=== PATIENT | female | born 1965 | race Caucasian/White ===

== ENCOUNTER 2022-12-22 08:05 | Outpatient (CLI) | payer OTHER, SELFPAY | END 2022-12-22 08:06 | disposition home or self-care (01) | LOC: NFLDREF 12-23 07:30 | PROVIDERS: PCP Internal Medicine; Referring Provider Internal Medicine; Visit Provider Internal Medicine | DX: Z00.00 Encounter for general adult medical examination without abnormal findings (principal); E03.9 Hypothyroidism, unspecified; Z13.1 Encounter for screening for diabetes mellitus | CPT/HCPCS: 82947; 84443 ==

== ENCOUNTER 2023-02-14 16:15 | Outpatient (RCR) | payer OTHER, SELFPAY ==
--- NOTE | 2022-12-26 13:11 | PT.OPE ---
PT [facility] Outpatient Eval PT [facility] Outpatient Eval Start: 12/25/22 08:53 Freq: Status: Active Protocol: Document 12/25/22 08:54 HN (Rec: 12/25/22 14:55 HN [id number]) E-signed By Malathi Syed DPT Physical Therapy Outpatient Evaluation Insurance Information Recert Due Date 02/23/23 Insurance Name [employer] Insurance Information/Comments Formerly [facility] Medical Diagnosis m54.16 lumbar radiculopathy Treating Diagnosis M54.16 lumbar radiculopathy Referring MD Kyle, [place] Subjective Subjective Patient is a 57 year old female with complaints of low back pain and right anterior LE pain, patient got on chair lift skiing, feels like her LE was yanked off, difficulty holding LE up. Patient reports some tingling mostly sharp achey that sharp with, shoots from knee. Has history of herniated disc. Patient is going for to [employer] for 1 week. Onset: Aggravating factors: standing up, lying flat, more pain at night, increased pain with stairs. Easing Factors: sitting, NSAIDs Prior level of function: unlimited with all ADLs and IADLs Current limitations: standing up, lying flat, more pain at night, increased pain with stairs. 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 Preferred Name Sanam Precautions Treatment Precautions/Contraindications no precautions/ contraindications identified at time of evaluation Weight Bearing Status Full Weight Bearing Therapy Limitations/Systems Review Not Limited Objective Other/Pertinent Objective Lumbar range of motion (% full range of motion) Flexion: 100 % Extension: 15 % increased pain and increased symptoms Left sidebendin% significant increase in symptoms Right sidebendin% no pain Left rotation: 50% significant increase in pain Right rotation: 75% mild pain Manual muscle testing: Hip flexion: 3+/5 L painful,?5 /5 R Hip abduction: 4/5 L ,?5/5 R Hip adduction: 5/5 L ,?5/5 R Hip extension: deferred Knee extension: 4+/5 L painful ,?5/5 R Knee flexion: 5/5 L ,?5/5 R Special tests: Slump: positive on left, negative on right Straight leg raise: positive on left, negative on right Repeated extension: no change in symptoms Repeated flexion: no change in symptoms Sensation: numbness and tingling along L2/L3 dermatome Joint mobility: PA mobilizations: hypomobile/ painful L2/L3, L3/L4 Palpation: increased pain and tenderness along lumbar paraspinals Functional Test Performed & Score Modified oswestry disability index: 20/50, 40% Assessment Assessment/Impression Patient is a 57 year old with complaints of low back and left LE symptoms. Patient demonstrates impaired in lumbar range of motion, Hip and knee strength, and increased numbness and tingling in left LE consistent with diagnosis of lumbar radiculopathy. The impairments impact the patients prolonged standing, lying supine, waking and performance of ADLs and IADLs. Patient will benefit from skilled physical therapy to address the impairments and activity limitations listed above. Prognostic factors include acuity of patient's symptoms and patient's low number of comorbidities. Primary Functional Limitations prolonged standing, lying supine, waking and performance of ADLs and IADLs. Plan of Care Rehabilitation Potential Good Rehabilitation Potential Comments Acuity of symptoms, patient's no/few comorbidities Physical Therapy Goals Short term goals (4 weeks, ) 1. Patient will tolerate standing >25 minutes with no increase in pain order to complete ADLs 2. Patient will report <7/10 pain in order to demonstrate decreased pain and disability related to symptoms 3. Patient will demonstrate independence with HEP in order to manage symptoms independently at home terminal make up operator goals (8 weeks, 02/23). 1. Patient will demonstrate 12 point improvement in Oswestry Disability Index in order to demonstrate decreased pain and disability related to 2. Patient will demonstrate full pain-free lumbar range of motion in order to complete ADLs and IADLs with no increase in pain. 3. Patient will report <3/10 pain in order to demonstrate decreased pain and disability related to symptoms. 5. Patient will demonstrate MMT of 4/5 in L hip and LE in order to demonstrate improved tolerance with lifting, carrying groceries. Coordination/Communication With Referral Source Treatment Plan/Direct Interventions Electrical Stimulation,Ice/ Cold/Vasopneumatic,Joint Mobilization,Manual Therapy, Neuromuscular Re-ed,Self-Care/ Home Management,Therapeutic Activities,Therapeutic Exercises,Traction (Mechanical ) Frequency/Duration 1-2x/week for 8 weeks Patient Will Be Discharged From Therapy Completion of LTG(s),Skills Plateau,Independent w/HEP Evaluation Billing Untimed Code Treatment Minutes 17 Complexity Low Certification Information Initial Certification Date 12/25/22 Ending Certification Date 02/23/23 Provider Signature Shows Agreement With POC & Medical Necessity Physician Signature & Date Requested Please Sign/Date Here Physician Comment/Change : Physician NPI Number #
== END 2023-03-16 15:23 | disposition home or self-care (01) ==
PROVIDERS: PCP Internal Medicine; Visit Provider Physician Assistant Surgical
DX: M54.16 Radiculopathy, lumbar region (principal); Z51.89 Encounter for other specified aftercare
CPT/HCPCS: 97110; 97140; 97161; 97535

== ENCOUNTER 2023-06-21 14:30 | Outpatient (RCR) | payer OTHER, SELFPAY | END 2023-08-01 14:49 | disposition home or self-care (01) | PROVIDERS: PCP Internal Medicine; Visit Provider Physician Assistant Surgical | DX: M54.12 Radiculopathy, cervical region (principal); Z51.89 Encounter for other specified aftercare | CPT/HCPCS: 97012; 97032; 97110; 97140; 97161; 97535 ==

== ENCOUNTER 2023-09-12 13:48 | Outpatient (CLI) | payer OTHER, SELFPAY ==
--- NOTE | 2023-09-12 14:00 | CRLHL7_ITS ---
For Patients: As a result of the Century Cures Act, medical imaging exams and procedure reports are released immediately into your electronic medical record. You may view this report before your referring provider. If you have questions, please contact your health care provider. INDICATION: Hearing loss. COMPARISON: None. TECHNIQUE: Noncontrast CT of the temporal bones. FINDINGS: Right: The right mastoid air cells and mastoid antrum are clear. Middle ear cavity is clear. Normal articulation of the ossicular chain. No opacification of sinus tympani. Normal tympanic membrane. The external auditory canal is patent. Tegmen tympani is intact. Normal mineralization of the otic capsule. Normal cochlea and vestibule. Normal internal auditory canal. Left: The left mastoid air cells and mastoid antrum are clear. Middle ear cavity is clear. Normal articulation of the ossicular chain. No opacification of sinus tympani. Normal tympanic membrane. The external auditory canal is patent. Tegmen tympani is intact. Normal mineralization of the otic capsule. Normal cochlea and vestibule. Normal internal auditory canal. Other: Visualized paranasal sinuses are clear. IMPRESSION: 1. Normal bilateral temporal bone structures. Please note that all CT scans at this facility use dose modulation, iterative reconstruction, and/or weight-based dosing when appropriate to reduce radiation dose to as low as reasonably achievable. Dictated by Patrick Mcmanus MD @ 09/13/2023 7:55:04 AM (Electronically Signed)
== END 2023-09-12 13:49 | disposition home or self-care (01) ==
LOC: CT 13:49
PROVIDERS: PCP Internal Medicine; Visit Provider Otolaryngology
DX: H91.93 Unspecified hearing loss, bilateral (principal)
CPT/HCPCS: 70480

== ENCOUNTER 2024-01-08 07:35 | Outpatient (CLI) | payer OTHER, SELFPAY ==
--- OUTSIDE RECORDS SUMMARY | 2024-01-11 07:23 | XMS_ITS | Encounter Summary ---
Author Name Unknown Organization [facility] Address [address] [place] [address] Care Team Providers Care Publications Designer Name Role Phone Unavailable Primary Care Provider Unavailabl e Reason for Visit * Reason Comments Phone Visit Encounter Details Date Type Department Care Team (Late st Contact Info) Description 12/19/2023 2:15 PM CDT Phone Visit Orthopedics at [facility] Orthopedic [place] [address] [place], [place] [id number] Dianelys Madera MD [address] [place] [id number] Ulnar nerve compression at multiple levels, unspecified laterality (Primary Dx); Hand numbness Social History Tobacco Use Types Packs/Day Years Used Date Smoking Tobacco: Never Assessed Sex and Gender Information Value Date Recorded Sex Assigned at Not on file Gender Identity Not on file Sexual Orientation Not on file documented as of this encounter Progress Notes * Dianelys Madera MD - 12/19/2023 2:15 PM CDT This visit was converted from a clinic visit to a telephone visit. The patient has been notified of following: This telephone visit will be conducted via a call between you and your physician/provider. We havefound that certain health care needs can be provided without the need for a physical exam. This service lets us provide the care you need with a short phone conversation. If a prescription is necessary we can send it directly to your pharmacy. If lab work is needed we can place an order for that and you can then stop by our lab to have the test done at a later time. If during the course of the call the physician/provider feels a telephone visit is not appropriate,you will not be charged for this service. Diagnosis: Cervical radiculopathy Last visit: 11/16/23 xrays needed at next visit: None Follow-up: P.r.n. Plan: I discussed the EMG results with the patient. They show evidence of cervical radiculopathy without compression of the ulnar nerve. I recommended that she visit with a spine surgeon. She had seen 1 last year and she may reach out to them again. I explained that I do not know if decompression at the cervical spine level at this time would result in improvement in her symptoms, but I think it would be worth exploring with a spine surgeon. The patient expressed understanding. Chief Complaint: follow up HPI: Sanam Darling is a 58 y.o. having a phone visit for a follow up visit. Treatment plan at their last visit on 11/16/23 included to obtain an EMG. Today, they state their symptoms are still the same. Still having numbness in the small and ring finger Physical Exam: Exam deferred due to phone visit. Results Reviewed: An EMG obtained on 12/06/23 shows: Changes consistent with a C8 radiculopathy on the left side. Total time spent on phone with patient: 5 minutes This visit was conducted via phone. The patient was in a safe place to conduct this visit. They were not operating a motor vehicle at the time of this visit. documented in this encounter Plan of Treatment Not on file documented as of this encounter Visit Diagnoses Diagnosis Ulnar nerve compression at multiple levels, unspecified laterality- Primary Hand numbness Disturbance of skin sensation documented in this encounter
--- OUTSIDE RECORDS SUMMARY | 2024-01-11 07:23 | XMS_ITS | Continuity of Care Document ---
Author Name Unknown Organization [facility] Address [address] [place] [address] Phone Care Team Providers Care Development Mgr Name Role Phone Deniz Akhtar MD Unavailable Unavailable Allergies, Adverse Reactions, Alerts Substance Reaction Status Criticality No Known Allergies Active No Inform ation Medications Medication Instructions Dosage Effective Dates (start - stop) Status Comments SYNTHROID (unknown strength) Not Available - Active Procedures Procedure Date Office[place]Outpatient [place] [facility] Directives Directive Yes / No Effective Date File Name No Information Encounters Encounter Description Practice Location Reason(s) For Visit Diagnoses Date Provider Providers Copied on Encounter Office/Outpati ent Visit,[facility] , [address], [place], [place], [id number], [place] tel:[phone] [facility] [place] Other spondylosis , cervical regionRadic ulopathy, cervical region Hermilo Guaman. [facility], [address] [place] [address], [address], [id number], [place]. tel:[phone] Referring Provider: Deniz Akhtar, [facility] [address], [address], [place], [address]. tel:[phone] Family History Family Member Type Diagnosis Age At Onset No Information Payers Payer name Insurance type Covered constitution party ID Authoramelie rodas(s) [facility] [id number] Social History Type Description Quantity Date Captured Comments Alcohol Use Details Unknown Caffeine Use Details Unknown Tobacco Use Status Current non-smoker Smoking Status Never smoker Non-Smoking Tobacco Use Details : No Details Available : No Details Available Sex Female Vital Signs Date / Time: Height Weight BMI Pulse Rate Blood Pressure Temperature Respiratory Rate Body Surface Area Head Circumference Head Circ. Percentile Wt./Melvin. Percentile BMI percentile Pulse Ox Inhaled Ox 11:35 AM 66.75 in 71.668 kg (158.00 lbs) 24.9 3 kg/m eter (2) Chief Complaint And Reason For Visit No Information Reason For Referral Reason For Referral No Information History Of Present Illness Encounter Date Complaint History Of Prese nt Illness No Information Functional Status Date Functional Assessmen t No Information Instructions Date Instruction Additional Infor mation No Information Assessments Type Assessment Date assessment Other spondylosis, cervical jaelyn on assessment Radiculopathy, cervical region S Patient Care Teams Name Effective Dates (start - stop) Status Members No Information
--- OUTSIDE RECORDS SUMMARY | 2024-01-11 07:23 | XMS_ITS | Encounter Summary ---
Author Name Unknown Organization [facility] Address [address] [place] [address] Care Team Providers Care Die Polisher Name Role Phone Unavailable Primary Care Provider Unavailabl e Reason for Visit * Procedure/Equipment (Routine) - New Request Specialty Diagnoses / Procedures Referred By Benoit t Referred To Contact Diagnoses Ulnar nerve compression at multiple levels, unspecified laterality Madera, Dianelys Landaverde MD [address] [place] [address] Referral ID Status Reason Start Date Expiration Date V isits Requested Visits Authorized [id number] New Request 11/16/2023 02/14/2025 1 1 Encounter Details Date Type Department Care Team (Latest Contact Info) Description 12/06/2023 12:30 PM CIRCULATING PROCESS INSPECTOR Office Visit [facility] EEG/EMG [address] [place] [address] Spencer Davis MD [address] [place] [address] Ulnar nerve compression at multiple levels, unspecified laterality (Primary Dx); Cervical radiculopathy Social History Tobacco Use Types Packs/Day Years Used Date Smoking Tobacco: Never Assessed Sex and Gender Information Value Date Recorded Sex Assigned at Not on file Gender Identity Not on file Sexual Orientation Not on file documented as of this encounter Patient Instructions * Patient Instructions* Rupinder Michelle - 12/06/2023 12:30 PM CIRCULATING PROCESS INSPECTOR The results of your EMG exam will be sent to the health care provider who ordered your EMG. Resultsare usually available in 2-3 days. Your referring provider will discuss the EMG results with you. If you have any site tenderness from the EMG needle exam, feel free to use an ice pack on the area as well as any over the counter pain reliever such as Tylenol or Ibuprofen. If you have any further questions or concerns, please contact us. Call for the [facility] in [place]. ULATING PROCESS INSPECTOR documented in this encounter Progress Notes * Spencer Davis MD - 12/06/2023 12:30 PM CST See procedure note. Spencer Davis MD 12/06/2023, 1:11 PM Department of Neurology [facility] ULATING PROCESS INSPECTOR documented in this encounter Procedure Notes * Spencer Davis MD - 12/06/2023 12:30 PM CSTAssociated Order(s): EMG REPORT [facility] EMG Lab [address] [place] [address] Visit Date: 12/06/2023 12:41 PM Name: Sanam Darling Patient MR#: [id number] Date of : 1965 Age: 58 Years Examiner: Spencer Davis M.D. Referring Provider: Dianelys Madera MD Height: Weight: Reason for Referral/History: Last May was having pain radiating down her left arm. Developed tingling in medial fingers of the left hand. The pain is gone but has ongoing numbness. A C spine MRI showed left C7-T1 foraminal stenosis. Exam: no weakness or atrophy in the left arm. Specific question: evaluate for left cervical radiculopathy vs ulnar neuropathy. Motor Nerve Conduction Nerve / Sites Rec.Site. Amplitude Ref. Latency Ref. Velocity Ref. mV mV ms ms m/s m/s L Median - APB Wrist APB 9.4 3.5 ?4.5 Elbow APB 8.6 ?4.0 7.8 55.8 ?48.0 L Ulnar - ADM Wrist ADM 10.9 2.8 ?3.6 B.Elbow ADM 10.2 5.8 66.4 ?51.0 A. Elbow ADM 10.0 ?6.0 7.3 65.9 ?51.0 F-Wave Studies Nerve M Lat F Lat Ref. Dist. ms ms ms mm L Ulnar - ADM 2.9 28.5 ?32.0 650 L Median - APB 3.7 28.0 ?32.0 650 Sensory Nerve Conduction Nerve / Sites Site Amp Ref. Peak Lat Ref. Velocity ??V ??V ms ms m/s L Median - Digit II (Antidromic) Wrist Dig II 22 ?15 3.2 ?3.6 51.6 Elbow Dig II 11 7.5 68.8 L Ulnar - Digit V (Antidromic) Wrist Dig V 21 ?10 2.5 ?3.1 55.0 B.Elbow Dig V 9 5.9 66.1 A.Elbow Dig V 7 7.5 65.0 69.5 L Superficial radial - Anatomical snuff box (Forearm) Forearm Dorsum of Hand 21 ?20 2.1 ?2.9 62.3 L Median, Ulnar - 1 Channel Palmar Median Palm Wrist 54 ?50 2.1 ?2.3 66.2 Ulnar Palm Wrist 28 ?15 1.8 ?2.3 64.0 EMG Summary Table . Spontaneous Activity Voluntary MUAPs Polyphasic Comment Muscle Exam Ins.Act. Fibs Fasc Rec. Decr. Recr. Incr. Ampl. High Ampl. Low Dur. Long Dur. Short Polyphasic Comment L. Biceps brachii Normal - - - - - - - - - - - L. Triceps brachii Normal - - - - - - - - - - - L. Pronator teres Normal - - - - - - - - - - - L. First dorsal interosseous - - - - + - + - + - + - L. Abductor pollicis brevis Normal - - - - - - - - - - - L. Extensor indicis proprius - - - - + - ++ - + - + - L. Cervical paraspinals (low) Normal - - - - - - - - - - - Summary The motor conduction test was normal in all 2 of the tested nerves: L Median - APB, L Ulnar - ADM. The sensory conduction test was normal in all 4 of the tested nerves: L Median - Digit II (Antidromic), L Ulnar - Digit V (Antidromic), L Superficial radial - Anatomical snuff box (Forearm), L Median, Ulnar - 1 Channel Palmar. The F wave study was normal in all 2 of the tested nerves: L Ulnar - ADM, L Median - APB. The needle EMG examination was performed in 7 muscles. It was normal in 5 muscle(s): L. Biceps brachii, L. Triceps brachii, L. Pronator teres, L. Abductor pollicis brevis, L. Cervical paraspinals (low). The study was abnormal in 2 muscle(s), with the following distribution: ?? The MUP waveform abnormality was found in L. First dorsal interosseous, L. Extensor indicis proprius. ?? polyphasic was found in L. First dorsal interosseous, L. Extensor indicis proprius. Conclusion: Abnormal study. There is mild chronic reinnervation in a C8 myotomal pattern consistent with a previous left C8 radiculopathy without evidence of ongoing nerve root irritation. Spencer Davis M.D. Methods: Limb temperature were monitored continuously during the NCS and repetitive stimulation. Hand temperatures were maintained between 32??C and 36??C. and foot, temperatures were maintained between 30??C and 36??C. NCS: 5 mm tin disc, Ulnar Nerve.: Elbow. Flexed, Concentric Needle Electrode. Instrument used: [employer] EDX File: [id number] ULATING PROCESS INSPECTOR documented in this encounter Plan of Treatment Not on file documented as of this encounter Procedures Procedure Name Priority Date/Time Associated Diagnosis Comments EMG REPORT Routine 12/06/2023 12:30 PM CIRCULATING PROCESS INSPECTOR Ulnar nerve compression at multiple levels, unspecified laterality documented in this encounter Results * EMG REPORT [[id number]] (12/06/2023 12:30 PM CIRCULATING PROCESS INSPECTOR) Narrative EXTERNAL RESULTS - 12/06/2023 12:30 PM CIRCULATING PROCESS INSPECTOR Spencer Davis MD ? 12/06/2023 ??1:51 PM [facility] EMG Lab [address] [place] [id number] ? Visit Date: 12/06/2023 12:41 PM ? Name: Sanam Darling Patient MR#: [id number] Date of : 1965 Age: 58 Years Examiner: Spencer Davis M.D. ??Referring Provider: Dianelys Madera MD Height: ?? Weight: ? Reason for Referral/History: Last May was having pain radiating down her left arm. Developed tingling in medial fingers of the left hand. The pain is gone but has ongoing numbness. A C spine MRI showed left C7-T1 foraminal stenosis. Exam: no weakness or atrophy in the left arm. Specific question: evaluate for left cervical radiculopathy vs ulnar neuropathy. ? Motor Nerve Conduction ?? Nerve / Sites Rec.Site. Amplitude Ref. Latency Ref. Velocity Ref. ?mV mV ms ms m/s m/s L Median - APB ?? Wrist APB 9.4 ?? 3.5 ?4.5 ? Elbow APB 8.6 ?4.0 7.8 ?? 55.8 ?48.0 L Ulnar - ADM ?? Wrist ADM 10.9 ?? 2.8 ?3.6 ? B.Elbow ADM 10.2 ?? 5.8 ?? 66.4 ?51.0 ?? A. Elbow ADM 10.0 ?6.0 7.3 ?? 65.9 ?51.0 ?? F-Wave Studies ?? Nerve M Lat F Lat Ref. Dist. ??ms ms ms mm L Ulnar - ADM 2.9 28.5 ?32.0 650 L Median - APB 3.7 28.0 ?32.0 650 ?? Sensory Nerve Conduction ?? Nerve / Sites Site Amp Ref. Peak Lat Ref. Velocity ?V ??V ms ms m/s L Median - Digit II (Antidromic) ?? Wrist Dig II 22 ?15 3.2 ?3.6 51.6 ?? Elbow Dig II 11 ?? 7.5 ?? 68.8 L Ulnar - Digit V (Antidromic) ?? Wrist Dig V 21 ?10 2.5 ?3.1 55.0 ?? B.Elbow Dig V 9 ?? 5.9 ?? 66.1 ?? A.Elbow Dig V 7 ?? 7.5 ?? 65.0 ?69.5 L Superficial radial - Anatomical snuff box (Forearm) ?? Forearm Dorsum of Hand 21 ?20 2.1 ?2.9 62.3 L Median, Ulnar - 1 Channel Palmar ?? Median Palm Wrist 54 ?50 2.1 ?2.3 66.2 ?? Ulnar Palm Wrist 28 ?15 1.8 ?2.3 64.0 ? EMG Summary Table ?. Spontaneous Activity Voluntary MUAPs Polyphasic Comment Muscle Exam Ins.Act. Fibs Fasc Rec. Decr. Recr. Incr. Ampl. High Ampl. Low Dur. Long Dur. Short Polyphasic Comment L. Biceps brachii Normal - - - - - - - - - - - L. Triceps brachii Normal - - - - - - - - - - - L. Pronator teres Normal - - - - - - - - - - - L. First dorsal interosseous - - - - + - + - + - + - L. Abductor pollicis brevis Normal - - - - - - - - - - - L. Extensor indicis proprius - - - - + - ++ - + - + - L. Cervical paraspinals (low) Normal - - - - - - - - - - - ?? Summary The motor conduction test was normal in all 2 of the tested nerves: L Median - APB, L Ulnar - ADM. The sensory conduction test was normal in all 4 of the tested nerves: L Median - Digit II (Antidromic), L Ulnar - Digit V (Antidromic), L Superficial radial - Anatomical snuff box (Forearm), L Median, Ulnar - 1 Channel Palmar. The F wave study was normal in all 2 of the tested nerves: L Ulnar - ADM, L Median - APB. The needle EMG examination was performed in 7 muscles. It was normal in 5 muscle(s): L. Biceps brachii, L. Triceps brachii, L. Pronator teres, L. Abductor pollicis brevis, L. Cervical paraspinals (low). The study was abnormal in 2 muscle(s), with the following distribution: ?The MUP waveform abnormality was found in L. First dorsal interosseous, L. Extensor indicis proprius. ?polyphasic was found in L. First dorsal interosseous, L. Extensor indicis proprius. ?? Conclusion: Abnormal study. There is mild chronic reinnervation in a C8 myotomal pattern consistent with a previous left C8 radiculopathy without evidence of ongoing nerve root irritation. Spencer Davis M.D. Methods: Limb temperature were monitored continuously during the NCS and repetitive stimulation. Hand temperatures were maintained between 32??C and 36??C. and foot, temperatures were maintained between 30??C and 36??C. NCS: 5 mm tin disc, Ulnar Nerve.: Elbow. Flexed, Concentric Needle Electrode. Instrument used: [employer] EDX File: [id number] Dianelys Madera MD [facility] [employer] EXTERNAL RESULTS documented in this encounter Visit Diagnoses Diagnosis Ulnar nerve compression at multiple levels, unspecified laterality- Primary Cervical radiculopathy Brachial neuritis or radiculitis nos documented in this encounter
--- OUTSIDE RECORDS SUMMARY | 2024-01-11 07:23 | XMS_ITS | Encounter Summary ---
Author Name Unknown Organization [facility] Address [address], [place] [address] Care Team Providers Care Register Clerk Name Role Phone Unavailable Primary Care Provider Unavailabl e Reason for Referral * Procedure/Equipment (Routine) - New Request Specialty Diagnoses / Procedures Referred By Benoit t Referred To Contact Diagnoses Ulnar nerve compression at multiple levels, unspecified laterality Dianelys Madera MD [address] [place] [address] Referral ID Status Reason Start Date Expiration Date V isits Requested Visits Authorized [id number] New Request 11/16/2023 02/14/2025 1 1 Scheduling Instructions Scheduling Instructions (EMG): If an appointment with [facility] was advised please call [phone] at the [facility] for assistance. We suggest you call your health insurance company about your coverage and benefits for this appointment. Do not apply any lotions or oils to your skin prior to this visit. EMG appointments can take up to two hours. Question Answer Appointment Urgency? Non-Urgent Body part(s) to be tested: Left Arm Symptoms: Numbness/Paresthesias, Weakness Reason for visit? eval cervical radiculopathy vs cubital tunnel syndrome E UP WORKER Reason for Visit * Reason Comments CONSULT Left hand numbness Encounter Details Date Type Department Care Team (Late st Contact Info) Description 11/16/2023 4:20 PM PASTE UP WORKER Office Visit Specialty [facility] [address] [place] [address] Dianelys Madera MD [address] [place] [address] Ulnar nerve compression at multiple levels, unspecified laterality (Primary Dx) Social History Tobacco Use Types Packs/Day Years Used Date Smoking Tobacco: Never Assessed Sex and Gender Information Value Date Recorded Sex Assigned at Not on file Gender Identity Not on file Sexual Orientation Not on file documented as of this encounter Patient Instructions * Patient Instructions* Dianelys Madera MD - 11/16/2023 4:20 PM PASTE UP WORKER Reason for today's visit: left hand numbness Your diagnosis: possible residual effects of pinched nerve at your neck (cervical radiculopathy) vsulnar nerve compression at the elbow (cubital tunnel syndrome) Tests that you will need: EMG/NCS- nerve test Treatment plan: You can try splinting the elbow straight while sleeping with an elbow pad worn backwards to preventelbow flexion. Other treatment options will depend on nerve test results. Follow up appointments: I will call you with the EMG results. If you have any questions about your visit, your symptoms, your medication, your test results or itis not clear what your diagnosis or treatment plan is please contact me (via on-line services/e-mail) or call my office at [phone]. Your follow up appointment will be scheduled with one of the Orthopaedic Hand Surgery Department team members. This may be one of our physician assistants. They are always in direct communication with your physician. Thank you for continuing to trust us with your care. We are your partner. E UP WORKER documented in this encounter Progress Notes * Dianelys Madera MD - 11/16/2023 4:20 PM CST Diagnosis: Hand numbness Hand Dominance: Left Xrays needed next visit: None Follow up: By phone after EMG Plan: The disc herniation seen on her MRI could definitely cause a cervical radiculopathy in this pattern, but she also has some signs and symptoms of cubital tunnel syndrome. I recommended an EMG tofurther evaluate. I will contact her with those results. In the meantime if she wants to try doing some nighttime splinting to keep the elbow straight that may help. Chief Complaint: left hand weakness and numbness HPI: Sanam Darling is a 58 y.o. left hand dominant female seen in clinic for evaluation of left hand weakness and numbness. Last summer she was tubing and a few days after that had the onset of significant neck pain and arm pain on the left side. She had an MRI which showed a disc herniation and she did physical therapy. Her neck pain and arm pain has improved but she has persistent numbness into the small and ring finger. This is present all the time. Occasionally it is associated with pain and she does think she had some elbow pain in the past but this has gotten better. She feels like herleft hand is clumsy when she tries to do keyboarding. She has trouble putting on jewelry PAST MEDICAL HISTORY: Hypothyroidism, hand osteoarthritis. She has had left ring finger PIP surgeryas well as right thumb surgery for arthritis in the past. 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 Smoking status: Nonsmoker, drinks about 2 alcoholic beverages a week Hobbies: Gardening, working out with weights Physical Exam: Patient is awake and alert. Breathing is nonlabored. Exam of the left upper extremity reveals Skin is intact. She does have bony enlargement of multiple joints consistent with osteoarthritis. There is stiffness of multiple IP joints as well. She reports subjectively diminished sensation over the dorsal ulnar hand much more so than over thedorsal radial hand. Symmetric sensation on the palmar surface of the index and long finger, but diminished on the ring and small finger. No intrinsic atrophy. Absent Froment's. Absent Wartenberg's. 5/5 strength with testing of FPL FDP to index finger abduction. Symmetric pinch strength as well. Positive elbow hyperflexion test with more sensitivity over the ulnar nerve at the medial epicondyle and some mild hypermobility there. No snapping over the medial epicondyle. Negative scratch collapse test there. 2 pt Discrimination Thumb Index Middle Ring Small Left 6 mm 5 mm 5 mm 5 mm 6 mm Results Reviewed: C-spine MRI dated May 05, 2023 shows a C7-T1 left-sided paracentral disc herniation with foraminal stenosis. An upper extremity EMG has not previously been obtained. E UP WORKER documented in this encounter Plan of Treatment Scheduled Referrals Name Type Priority Associated Diagnoses Orde r Schedule Emg-Electromyography Adult Referral Routine Ulnar nerve compression at multiple levels, unspecified laterality Ordered: 11/16/2023 documented as of this encounter Visit Diagnoses Diagnosis Ulnar nerve compression at multiple levels, unspecified laterality- Primary documented in this encounter
--- OUTSIDE RECORDS SUMMARY | 2024-01-11 07:23 | XMS_ITS | Clinical Summary ---
Author Name Unknown Organization [facility] Address [address] [address] Care Team Providers Care Cargo Services Coordinator Name Role Phone Unavailable Primary Care Provider Unavailabl e Source Comments You are receiving this document as you are listed as the primary care provider,follow-up provider, or the patient has been referred to you for consultation.This is in compliance with the Medicare and[facility] EHR Incentive Program,which states Providers who transition their patient to another setting of careor provider of care or refers their patient to another provider of care shouldprovide summary care record for each transition of care or referral. [facility] Allergies No known active allergies Medications Medication Sig Dispensed Refills Start Date End Date Status estradiol (CLIMARA) 0.05 MG/24HR weekly patch Apply 1 Patch to skin once every week. 10/28/2023 Active levothyroxine (SYNTHROID) 150 MCG tablet Take 1 Tablet (150 mcg) by mouth daily. 11/03/2023 Active Encounters Date Type Department Care Team Description 12/19/2023 2:15 PM CDT Phone Visit Orthopedics at [facility] Orthopedic [address] [address] Dianelys Madera MD Ulnar nerve compression at multiple levels, unspecified laterality (Primary Dx); Hand numbness 12/18/2023 Telephone Orthopedics at [address] [address] Dianelys Madera MD EMG RESULTS 12/06/2023 12:30 PM BLEACH MACHINE OPERATOR Office Visit [facility] EEG/EMG [address] [place] [address] Spencer Davis MD Ulnar nerve compression at multiple levels, unspecified laterality (Primary Dx); Cervical radiculopathy 11/16/2023 4:20 PM BLEACH MACHINE OPERATOR Office Visit Specialty Center [address] [facility] [address] [facility] [place] [address] Dianelys Madera MD Ulnar nerve compression at multiple levels, unspecified laterality (Primary Dx) from Last 3 Months Social History Tobacco Use Types Packs/Day Years Used Date Smoking Tobacco: Never Assessed Sex and Gender Information Value Date Recorded Sex Assigned at Not on file Gender Identity Not on file Sexual Orientation Not on file Plan of Treatment Health Maintenance Due Date Last Done Comments Cervical Cancer Screening Due 1965 Colon Cancer Screening Plan Due 1965 Hep C Screening (Preventive Services) 1965 Mammogram 1965 HIV Screening (Preventive Services) 1981 Adult Preventive Visit 1983 HepB (1) 1984 Cholesterol 2010 DTaP/Tdap/Td (1 - Tdap) 06/13/2017 06/12/2017 COVID-19 Vaccine ( season) 2023 01/27/2021, 12/30/2020 Zoster/Shingles Completed 11/03/2020, 03/01/2020 Influenza Completed 09/16/2023, 07/02, 07/05/2021, Additional history exists HepA Aged Out No longer eligi ble based on patient's age to complete this topic Hib Aged Out No longer eligi ble based on patient's age to complete this topic IPV (Polio) Aged Out No longer eligi ble based on patient's age to complete this topic MCV4 Aged Out No longer eligi ble based on patient's age to complete this topic Pneumococcal Aged Out No longer eligi ble based on patient's age to complete this topic Procedures Procedure Name Priority Date/Time Associated Diagnosis Comments EMG REPORT Routine 12/06/2023 12:30 PM BLEACH MACHINE OPERATOR Ulnar nerve compression at multiple levels, unspecified laterality from Last 3 Months Results * EMG REPORT [[id number]] (12/06/2023 12:30 PM BLEACH MACHINE OPERATOR) Narrative EXTERNAL RESULTS - 12/06/2023 12:30 PM BLEACH MACHINE OPERATOR Spencer Davis MD ? 12/06/2023 ??1:51 PM [facility] EMG Lab [address] [place] [address] ? Visit Date: 12/06/2023 12:41 PM ? Name: Sanam Darling Patient MR#: [id number] Date of : 1965 Age: 58 Years [...] Elbow. Flexed, Concentric Needle Electrode. Instrument used: Xtalic EDX File: [id number] Dianelys Madera MD [facility] EXTERNAL RESULTS from Last 3 Months Sanam Darling Personal/Family Self 1965 ([place]) [address] [place] [address]
--- OUTSIDE RECORDS SUMMARY | 2024-01-11 07:23 | XMS_ITS | Encounter Summary ---
Author Name Unknown Organization [facility] Address [address], [place] [address] Care Team Providers Care Naval Architect Name Role Phone Unavailable Primary Care Provider Unavailabl e Reason for Visit * Reason Comments EMG RESULTS Encounter Details Date Type Department Care Team (Late st Contact Info) Description 12/18/2023 Telephone Orthopedics at [facility] [address] [place] [address] Dianelys Madera MD [address] [place] [address] EMG RESULTS Social History Tobacco Use Types Packs/Day Years Used Date Smoking Tobacco: Never Assessed Sex and Gender Information Value Date Recorded Sex Assigned at Not on file Gender Identity Not on file Sexual Orientation Not on file documented as of this encounter Nursing Notes * Carrie Stone OA - 12/18/2023 3:15 PM CDT Patient scheduled, aware she may be called before or after her appointment time. NITHIN Stuart * Destiney Tom - 12/18/2023 3:06 PM CDT Pt is calling back for update status. Destiney Hanson Mai 12/18/2023, 3:07 PM * Deniz Jolly ATC - 12/18/2023 11:42 AM CDT LVM with patient informing her that we were calling to set up phone visit to go over EMG results with Dr. Madera tomorrow. Patient advised to call back to schedule. Deniz Jolly ATC 12/18/2023 11:43 AM documented in this encounter Plan of Treatment Not on file documented as of this encounter Visit Diagnoses Not on filedocumented in this encounter
--- OUTSIDE RECORDS SUMMARY | 2024-01-11 07:24 | XMS_ITS | Clinical Summary ---
Author Name Unknown Organization [facility] Address [address] [place] [address] Care Team Providers Care Proposal Review Analyst Name Role Phone Amparo Victoria MD Primary Care Provider Allergies No known active allergies Medications Medication Sig Dispensed Refills Start Date End Date Status omeprazole (PRILOSEC) 40 MG capsuleIndications:Eso phageal ulcer Take 1 capsule by mouth daily. 30 capsule 11 08/07/2011 Active SYNTHROID 175 MCG tabletIndications:Unsp ecified hypothyroidism Take 1 tablet by mouth daily. Last refill the pt needs labs and an appt with there provider, please inform the pt 90 tablet 0 07/25/2012 Active estradiol (VIVELLE-DOT) 0.05 MG/24HR BIW patch Place 1 patch onto the skin twice a week Active Active Problems Problem Noted Date Diagnosed Date CARDIOVASCULAR SCREENING; LDL GOAL LESS THAN 160 07/30/2011 Hypothyroidism 06/12/2007 Overview: Problem list name updated by automated process. Provider to review Anxiety state 06/12/2007 Overview: Problem list name updated by automated process. Provider to review Acute reaction to stress 06/12/2007 Overview: Problem list name updated by automated process. Provider to review Immunizations Name Administration Dates Next Due Influenza (IIV3) PF 07/18/2011 Family History Medical History Relation Comments Hypertension Father Cancer Mother ovarian cancer Hypertension Mother Relation Status Comments Father Alive Mother (Age 64) ovarian cancer Social History Tobacco Use Types Packs/Day Years Used Date Smoking Tobacco: Never Smokeless Tobacco: Never Alcohol Use Standard Drinks/Week Comments Yes 0 (1 standard drink = 0.6 oz pur e alcohol) occasional use Adolescent Education Answer Date Record ed Getting School Help Needed Not on file 07/15 Sex and Gender Information Value Date Recorded Sex Assigned at Not on file Gender Identity Not on file Sexual Orientation Not on file Last Filed Vital Signs Vital Sign Reading Time Taken Comments Blood Pressure 140/92 04/30/2022 9:43 PM CDT Pulse 92 04/30/2022 9:43 PM CDT Temperature 36.6 ??C (97.9 ??F) 04/30/2022 9:43 PM CD T Respiratory Rate 18 04/30/2022 9:43 PM CDT Oxygen Saturation 97% 04/30/2022 9:43 PM CDT Inhaled Oxygen Concentration - - Weight 72.6 kg (160 lb) 04/30/2022 9:43 PM CDT Height 170.2 cm (5' 7) 08/07/2011 9:08 AM COMPLIANCE ANALYST Body Mass Index - - Plan of Treatment Health Maintenance Due Date Last Done Comments ADVANCE CARE PLANNING 1965 ANNUAL REVIEW OF HM ORDERS 1965 CT COLONOGRAPHY 1965 FIT 1965 FLEX SIG 1965 sDNA (Cologuard) 1965 COLONOSCOPY 1975 COLORECTAL CANCER SCREENING 1975 HIV SCREENING 1980 HEPATITIS C SCREENING 1983 HEPATITIS B IMMUNIZATION (1 of 3 - 19+ 3-dose series) 1984 DTAP/TDAP/TD IMMUNIZATION (1 - Tdap) 1990 PAP 07/18/2012 07/18/2011, 06/12/2007 YEARLY PREVENTIVE VISIT 07/18/2012 07/18/2011, 06/12 LIPID 07/18/2016 07/18/2011, 06/15/2007 MAMMO SCREENING 10/27/2017 10/27/2015, 10/24/2010 TSH W/FREE T4 REFLEX 05/16/2018 05/16/2017, 07/18/2011, 07/18/2011, Additional history exists GLUCOSE 05/16/2020 05/16/2017, 07/01, 06/15/2007 COVID-19 Vaccine ( season) 2023 01/27/2021, 12/30/2020 INFLUENZA VACCINE (#1) 2023 1, 05/25/2019, 05/20/2018, Additional history exists PHQ-2 (once per calendar year) 2023 ZOSTER IMMUNIZATION Completed 11/03/2020, 0 HPV IMMUNIZATION Aged Out No longer e ligible based on patient's age to complete this topic IPV IMMUNIZATION Aged Out No longer e ligible based on patient's age to complete this topic MENINGITIS IMMUNIZATION Aged Out No l onger eligible based on patient's age to complete this topic Pneumococcal Vaccine: Pediatrics (0 to 5 Years) and At-Risk Patients (6 to 64 Years) Aged Out No longer eligible based on patient's age to complete this topic RSV MONOCLONAL ANTIBODY Aged Out No l onger eligible based on patient's age to complete this topic Procedures Procedure Name Priority Date/Time Associated Diagnosis Comments COMPREHENSIVE METABOLIC PANEL STAT 05/16/2017 10:50 AM CDT TSH WITH FREE T4 REFLEX Routine 05/16/2017 10:50 AM CDT Chest pain, unspecified type MA DIAGNOSTIC DIGITAL RIGHT Routine 10/27/2015 10:50 AM COMPLIANCE ANALYST Follow-up exam, 3-6 months since previous exam Breast microcalcifications PAP IMAGED THIN LAYER SCREEN Routine 07/18/2011 2:32 PM CDT Routine general medical examination at a health care facility LIPID REFLEX TO DIRECT LDL PANEL Routine 07/18/2011 2:32 PM CDT Routine general medical examination at a health care facility from Last 3 Months or Most Recently Relevant to Health Maintenance Results * TSH with free T4 reflex (05/16/2017 10:50 AM CDT) TSH 1.34 0.40 - 4.00 mU/L 05/16/2017 2:04 PM CDT [facility] 05/16/2017 10:5 0 AM CDT 05/16/2017 11:45 AM CDT Jillian Raymond MD LAB - BLOOD ORDERABL ES [facility] [address] [place] [id number], [facility] [phone] * (ABNORMAL) Comprehensive metabolic panel (05/16/2017 10:50 AM CDT) Sodium 142 133 - 144 mmol/L 05/16/2017 12:10 PM [facility] Potassium 3.3(L) 3.4 - 5.3 mmol/L 05/16/2017 12:10 PM [facility] Chloride 106 94 - 109 mmol/L 05/16/2017 12:10 PM [facility] Carbon Dioxide 25 20 - 32 mmol/L 05/16/2017 12:10 PM [facility] Anion Gap 11 3 - 14 mmol/L 05/16/2017 12:10 PM [facility] Glucose 96 70 - 99 mg/dL 05/16/2017 12:10 PM [facility] Urea Nitrogen 11 7 - 30 mg/dL 05/16/2017 12:10 PM [facility] Creatinine 0.68 0.52 - 1.04 mg/dL 05/16/2017 12:10 PM [facility] GFR Estimate >90 >60 mL/min/1.7 m2 05/16/2017 12:10 PM [facility] Comment:Non GFR Calc GFR Estimate If Black >90 >60 mL/min/1.7 m2 05/16/2017 12:10 PM [facility] Comment: GFR Calc Calcium 8.8 8.5 - 10.1 mg/dL 05/16/2017 12:10 PM [facility] Bilirubin Total 0.6 0.2 - 1.3 mg/dL 05/16/2017 12:10 PM [facility] Albumin 4.1 3.4 - 5.0 g/dL 05/16/2017 12:10 PM [facility] Protein Total 7.6 6.8 - 8.8 g/dL 05/16/2017 12:10 PM [facility] Alkaline Phosphatase 62 40 - 150 U/L 05/16/2017 12:10 PM [facility] ALT 33 0 - 50 U/L 05/16/2017 12:10 PM CDT [facility] AST 21 0 - 45 U/L 05/16/2017 12:10 PM CDT [facility] Blood specimen (specimen) 05/16/2017 10:50 AM CDT 05/16/2017 11:45 AM CDT Jillian Raymond MD LAB - BLOOD ORDERABL ES [facility] [address] [place], [place] [address] [phone] * MA Diagnostic Digital Right (10/27/2015 10:50 AM COMPLIANCE ANALYST) Anatomical Region Laterality Modality Breast Right Mammography Impressions 10/27/2015 10:55 AM COMPLIANCE ANALYST IMPRESSION: BI-RADS CATEGORY: 2 - Benign Finding(s) RECOMMENDED FOLLOW-UP: Annual Mammography CRISTINA JEFF MD Narrative 10/27/2015 10:55 AM COMPLIANCE ANALYST DIAGNOSTIC MAMMOGRAM RIGHT DIGITAL w/CAD ??10/27/15 HISTORY: Stereotactic biopsy in March 2015. Pathology showed fibrocystic changes and columnar cell hyperplasia and no evidence for atypia or malignancy. Patient's physician requested short-term followup. COMPARISON: ??Prior mammograms through 2011. BREAST DENSITY: Heterogeneously dense FINDINGS: ??There are a few residual stable appearing micro-calcifications in the medial right breast when compared with the patient's post-stereotactic biopsy mammogram. Otherwise unremarkable. Procedure Note Cristina Jeff MD - 10/27/2015 DIAGNOSTIC MAMMOGRAM RIGHT DIGITAL w/CAD 10/27/15 HISTORY: Stereotactic biopsy in March 2015. Pathology showed fibrocystic changes and columnar cell hyperplasia and no evidence for atypia or malignancy. Patient's physician requested short-term followup. COMPARISON: Prior mammograms through 2011. BREAST DENSITY: Heterogeneously dense FINDINGS: There are a few residual stable appearing micro-calcifications in the medial right breast when compared with the patient's post-stereotactic biopsy mammogram. Otherwise unremarkable. IMPRESSION: BI-RADS CATEGORY: 2 - Benign Finding(s) RECOMMENDED FOLLOW-UP: Annual Mammography CRISTINA JEFF MD Amparo Victoria MD [facility] MAMMOGRAPHY TED JIN * PAP IMAGED THIN LAYER SCREEN (07/18/2011 2:32 PM CDT) PAP OTHER-NIL EM>40 COPATH Copath Report Patient Name: FRITZ DARLING MR#: [id number] Specimen #: [id number] Collected: 07/18/2011 Received: 07/19/2011 Reported: 07/21/2011 07:51 Ordering Phy(s): APRIL FUENTES SPECIMEN/STAIN PROCESS: Pap imaged thin layer prep screening (Surepath, FocalPoint with guided screening) ? Pap-Cyto x 1, Reflex HPV x 1 SOURCE: Cervical, endocervical Pap imaged thin layer prep screening (Surepath, FocalPoint with guided screening) SPECIMEN ADEQUACY: Satisfactory for evaluation. -Transformation zone component present. CYTOLOGIC INTERPRETATION: Other: Negative for Intraepithelial Lesion or Malignancy, See interpretation/Res ult. ? -Endometrial cells present. -Endometrial cells after age 40, particularly out of phase or after menopause, may be associated with benign endometrium, hormonal alterations, and less commonly, endometrial abnormalities. Electronically signed out by: Hunter Lam M.D. Processed and screened at [facility] CLINICAL HISTORY: Previous normal pap: 06/12/2007, Papanicolaou Test Limitations: ??Cervical cytology is a screening test with limited sensitivity; regular screening is critical for cancer prevention; Pap tests are primarily effective for the diagnosis/preventi on of squamous cell carcinoma, not adenocarcinomas or other cancers. TESTING LAB LOCATION: [address] ??[id number] COLLECTION SITE: Client: ??[facility] Location: [facility] Cytologic material (specimen) 07/18/2011 2:32 PM CDT 07/19/2011 1:27 PM CDT April Fuentes MD LAB - OPTIME CLIN ICAL SPECIMEN COPATH * Lipid panel reflex to direct LDL (07/18/2011 2:32 PM CDT) Cholesterol 176 0 - 200 mg/dL [facility] Comment: LDL Cholesterol is the primary guide to therapy. The NCEP recommends further evaluation of: patients with cholesterol greater than 200 mg/dL if additional risk factors are present, cholesterol greater than 240 mg/dL, triglycerides greater than 150 mg/dL, or HDL less than 40 mg/dL. Triglycerides 89 0 - 150 mg/dL [facility] HDL Cholesterol 60 50 - 110 mg/dL [facility] LDL Cholesterol Calculated 98 0 - 129 mg/dL [facility] Comment: LDL Cholesterol is the primary guide to therapy: LDL-cholesterol goal in high risk patients is <100 mg/dL and in very high risk patients is <70 mg/dL. VLDL-Cholesterol 18 0 - 30 mg/dL [facility] Cholesterol/HDL Ratio 2.9 0.0 - 5.0 [facility] Blood specimen (specimen) 07/18/2011 2:32 PM CDT 07/18/2011 2:33 PM CDT April Fuentes MD LAB - BLOOD ORDER SHENA Performing Organization Address City/[facility]/ZIP Co de Phone Number [facility] from Last 3 Months or Most Recently Relevant to Health Maintenance Care Teams Proposal Review Analyst Relationship Specialty Start Date End Date Amparo Victoria MD [address] [address] PCP - General Internal Medicine 03/30/15
--- OUTSIDE RECORDS SUMMARY | 2024-01-11 07:24 | XMS_ITS | Clinical Summary ---
Author Name Unknown Organization [facility] Address [place], [place] [address] Care Team Providers Care Switchboard Troubleshooter Name Role Phone Amparo Victoria MD Primary Care Provider [phone] Allergies No known active allergies Medications Medication Sig Dispensed Refills Start Date End Date Status ACETAMINOPHEN 325 MG TAB Take 1-2 325mg tablets by mouth every 4 hours for pain as needed. 0 0 05/10/2006 Active IBUPROFEN 200 MG CAP Take 1-3 200mg tablets by mouth every 6 hours for pain as needed 0 0 05/10/2006 Active PIDVMDBG-AE-LES-FE-FA TAB Take 1 tablet by mouth each day 0 0 05/10/2006 Active DOCUSATE SODIUM 100 MG CAP Take 100mg by mouth per day. 0 0 05/10/2006 Active Active Problems Problem Noted Date Diagnosed Date Unspecified hypothyroidism 05/08/2006 Supervision of other normal 05/08/2006 Estimated Date of Delivery Comme nts Yes 04/29/2006 Social History Tobacco Use Types Packs/Day Years Used Date Smoking Tobacco: Never Assessed Estimated Date of Delivery Comme nts Yes 04/29/2006 Sex and Gender Information Value Date Recorded Sex Assigned at Not on file Gender Identity Not on file Sexual Orientation Not on file Obstetrics History Para Term AB IAB SAB Ectopic Multiple Livin g Live Births 3 1 1 0 1 0 1 0 0 1 Date Outcome GA Total Labor Labor/2nd/3rd Weight Sex Delivery Anes PTL Shannon A1 A5 Name Cl in SAB Term Last Filed Vital Signs Vital Sign Reading Time Taken Comments Blood Pressure 102/70 05/10/2006 9:32 AM CDT Pulse 72 05/10/2006 9:32 AM CDT Temperature 36.7 ??C (98 ??F) 05/10/2006 9:32 AM CDT Respiratory Rate 18 05/10/2006 9:32 AM CDT Oxygen Saturation - - Inhaled Oxygen Concentration - - Weight 89.8 kg (198 lb) 05/08/2006 11:49 AM CDT Height 170.2 cm (5' 7) 05/08/2006 11:49 AM CDT Body Mass Index 31.01 05/08/2006 11:49 AM CDT Plan of Treatment Health Maintenance Due Date Last Done Comments Tdap 1976 Depression screening for age 12+ 1977 HIV for age 15-65 1980 BMI (ht and wt on same day) for age 18+ 1983 Hepatitis C screening for ag e 18-79 1983 Tetanus booster 1985 Colonoscopy through age 75 2010 Lipids for age 45-75 2010 Pap test for age 21-65 08/19/2012 08/19/2009 Mammogram for age 45-75 08/18/2014 08/18/20 13, 02/21/2013 Zoster (shingles) series for age 50+ (1 of 2) 2015 COVID-19 vaccine series (2022- season) 2023 Influenza for age 50-64 06/01/2024 Pneumococcal series for age 6-64 Aged Out No longer eligible b ased on patient's age to complete this topic Procedures Procedure Name Priority Date/Time Associated Diagnosis Comments XR MAMMO UNI DIAG FFDM RIGHT (IA) Routine 08/18/2013 1:34 PM KNOCKER OUT Follow up GYNECOLOGICAL PANEL Timed 08/19/2009 8 :35 AM KNOCKER OUT from Last 3 Months or Most Recently Relevant to Health Maintenance Results * XR MAMMO UNI DIAG FFDM RIGHT (08/18/2013 1:34 PM KNOCKER OUT) Anatomical Region Laterality Modality BREASTS, Breast Right Right Mammograph y 08/18/2013 1:46 PM KNOCKER OUT Narrative 08/18/2013 2:03 PM KNOCKER OUT [facility] XR MAMMO UNI DIAG FFDM RIGHT 08/18/2013 1:34 PM INDICATION: Microcalcifications in the right breast. COMPARISON: 02/21/2013. MAMMOGRAPHIC FINDINGS: Right full field digital diagnostic mammogram performed. Oblique, CC and true lateral views obtained. The small collection of faint microcalcifications in the inferior aspect of the right breast seen best on the true lateral view are again noted unchanged from the previous examination. While technically indeterminate these are very faint and as they are stable from the previous examination I believe it would be reasonable to simply follow these in an additional 6 months' time at the time of annual bilateral mammographic imaging. Images evaluated with the assistance of CAD. IMPRESSION: Stable microcalcifications inferior right breast. Six-month followup recommended. ?? ACR BI-RADS: Category 3: ??Probably Benign: Short Interval Followup Suggested ?? Procedure Note Elmo Pearce MD - 08/18/2013 [facility] XR MAMMO UNI DIAG FFDM RIGHT 08/18/2013 1:34 PM INDICATION: Microcalcifications in the right breast. COMPARISON: 02/21/2013. MAMMOGRAPHIC FINDINGS: Right full field digital diagnostic mammogramperformed. Oblique, CC and true lateral views obtained. The smallcollection of faint microcalcifications in the inferior aspect of theright breast seen best on the true lateral view are again noted unchangedfrom the previous examination. While technically indeterminate these arevery faint and as they are stable from the previous examination I believeit would be reasonable to simply follow these in an additional 6 months'time at the time of annual bilateral mammographic imaging. Imagesevaluated with the assistance of CAD. IMPRESSION: Stable microcalcifications inferior right breast. Six-month followuprecommended. ACR BI-RADS: Category 3: Probably Benign: Short Interval FollowupSuggested Amparo Victoria MD MAMMO * GYNECOLOGICAL PANEL (08/19/2009 8:35 AM KNOCKER OUT) CYTOLOGY CYTOPATHOLOGY REPORT [facility] [employer] Status: Final Status ?[id number] CLINICAL INFORMATION Last Date of LMP ? :08/03/09 Last Pap Date ?: Last Pap Result ?:WNL [place]/Bx done today ? :No HPV Request ?:HPV if ASCUS SPECIMEN SOURCE ?:Cervical/vagina l ThinPrep Vial, screening SPECIMEN ADEQUACY ?:Satisfactory for evaluation Endocervical component ? present. INTERPRETATION/RES ULT Negative for intraepithelial lesion or malignancy (NIL) Cytology 1st Screener ??:lgb Signed by ?:lgb This specimen was screened by the FDA approved ThinPrep Imaging System and manually reviewed. NOTE: ??The Pap test is a screening technique, not a diagnostic procedure. ??It is used ??primarily to screen for squamous cancers and precursor lesions. ??Published studies have shown that it is subject to both false negative and false positive results. ??The pap test should not be used as the sole means to diagnose or exclude pre-malignant and malignant lesions. COLLECTED:08/19/09 ? ACCESSIONED: ??08/23/09 ?? SIGNED: ??08/30/09 [facility] [place] CODE NIL [facility] 08/19/2009 8:35 AM KNOCKER OUT 08/23/2009 8:35 AM KNOCKER OUT Louise Emanuel PA-C PATHOLOGY/CYTOLOGY [facility] INTERNAL ZIP [address] [address] from Last 3 Months or Most Recently Relevant to Health Maintenance Advance Directives * Full Code (Latest Code Status on File) Date Activated Date Inactivated Comments 05/08/2006 6:17 PM 05/10/2006 4:18 PM * Full Code Date Activated Date Inactivated Comments 05/08/2006 7:48 AM 05/08/2006 6:17 PM Care Teams Switchboard Troubleshooter Relationship Specialty Start Date End Date Amparo Victoria MD PCP - General Internal Medicine 02/20/13
--- OUTSIDE RECORDS SUMMARY | 2024-01-11 07:24 | XMS_ITS | Continuity of Care Document ---
Author Name Unknown Organization [facility] Address [address] [address] [place] [address] Phone Care Team Providers Care Brick Tender Name Role Phone Bertrand Gee MD, Colt Byrnes e Allergies, Adverse Reactions, Alerts Substance Reaction Status Criticality No Known Allergies Active No Inform ation Medications Medication Instructions Dosage Effective Dates (start - stop) Status Comments Estrogen Unknown Oral - Active Synthroid 175 mcg tablet take 1 tablet by oral route every day 175 MCG - Active Procedures Procedure Date Colonoscopy Flex; W/remov Les- 24 Level Iv-surg Path Gross/micro 24 Colonoscopy Flex; W/remov Les- 23 Level Iv-surg Path Gross/micro 23 Colonoscopy Flex; W/remov Les- 19 Level Iv-surg Path Gross/micro 19 Colonoscopy Flex; W/bx /mx Level Iv-surg Path Gross/micro 19 Ugi Endo; W/bx /mx Advance Directives Directive Yes / No Effective Date File Name No Information Encounters Encounter Description Practice Location Reason(s) For Visit Diagnoses Date Provider Providers Copied on Encounter [facility], [address] [address], [place], [id number], tel:[phone] [facility] No Information 4 Bertrand Gregory. [address] [facility], [place], [place], [id number] , [place]. tel:[phone] [facility], [address] [address], [place], [place], [address], [place] tel:[phone] [facility] GI Symptoms or Concerns (chief complaint) Colorectal polyp detected on colonoscopySerrat ed polyposis syndromeEncounter for screening for malignant neoplasm of colonPersonal history of colonic polypsBenign neoplasm of colon, unspecified 4 Pedro Braxton. [address] [facility], [place], [place], [address] , [place]. tel:[phone] Referring Provider: Referral Self, USE FOR SELF REFERRALS. [facility], [address] [address], [place], [place], [id number], [place] tel:[phone] [facility] No Information 3 Bertrand Gregory. [address] [facility], [place], [place], [id number] , [place]. tel:[phone] [facility], [address] [address], [place], [place], [address], [place] tel:[phone] [facility] GI Symptoms or Concerns (chief complaint) Colorectal polypsHemorrhoids , externalEncounter for screening for malignant neoplasm of colonPersonal history of colonic polypsBenign neoplasm of ascending colonBenign neoplasm of transverse colonBenign neoplasm of transverse colonBenign neoplasm of ascending colon 3 Pedro Braxton. [address] [facility], [place], [place], [id number] , [place]. tel:[phone] Referring Provider: Referral Self, USE FOR SELF REFERRALS. [facility], [address] [address], [place], [place], [address], [place] tel:[phone] [facility] No Information 2 Bertrand Gregory. [address] [facility], [place], [place], [id number] , [place]. [phone] [facility], [address] [address], [place], [place], [address], [place] tel:[phone] [facility] No Information 2 Bertrand Gregory. [address] [facility], [place], [place], [id number] , [place]. tel:[phone] [facility], [address] [address], [place], [place], [address], [place] tel:[phone] [facility] Colorectal polyp detected on colonoscopyHistor y of adenomatous polyp of colonEncounter for screening for malignant neoplasm of colonOther specified congenital malformations of intestineEncounte r for screening for malignant neoplasm of colonOther specified congenital malformations of intestinePolyp of colonPersonal history of colonic polyps 9 Pedro Braxton. [address] [facility], [place], [place], [address] , [place]. [phone] Referring Provider: Referral Self, USE FOR SELF REFERRALS. [facility], [address] [address], [place], [place], [address], [place] tel:[phone] [facility] History of adenomatous polyp of colonOther specified diseases of intestinePersonal history of colonic polyps 9 Pedro Braxton. [address] [facility], [place], [place], [address] , [place]. [phone] Referring Provider: Amparo Dempsey, [address] [facility], [place], [address]. tel:[phone] [facility], [address] [address], [place], [place], [address], [place] tel:[phone] [facility] No Information 1 [employer]. [address] [facility], [place], [place], [address] , [place]. [phone] Referring Provider: Manpreet Candelario MD, [address] [facility] [address], [place], [address] . tel:[phone] Family History Family Member Type Diagnosis Age At Onset Brother Problem (finding) Alive and well Father Problem (finding) Cancer, colon Mother Problem (finding) Alcoholism Daughter Problem (finding) Alive and well Brother Problem (finding) malignant neoplasm of p harynx Brother Problem (finding) Cancer, lung Father Problem (finding) Colon polyps Mother Problem (finding) Mother Problem (finding) malignant neoplasm of o vary Brother Problem (finding) Alcoholism Father Problem (finding) Alive and well Father Problem (finding) Cancer, basal cell Immunizations Vaccine Date Status Comments Afluria Qd administered Note: [facility] bi-directional interface ; Source: Other Registry Seasonal, quadrivalent, recombinant, injectable influenza vaccine, preservative free administered Note: [facility] bi-direct ional interface ; Source: Other Registry Seasonal, quadrivalent, recombinant, injectable influenza vaccine, preservative free administered Note: [facility] bi-direct ional interface ; Source: Other Registry SARS-COV-2 (COVID-19) vaccin e, mRNA, spike protein, LNP, preservative free, 100 mcg/0.5mL dose or 50 mcg/0.25mL dose administered Note: [facility] bi -directional interface ; Source: Other Registry SARS-COV-2 (COVID-19) vaccin e, mRNA, spike protein, LNP, preservative free, 100 mcg/0.5mL dose or 50 mcg/0.25mL dose administered Note: [facility] bi -directional interface ; Source: Other Registry zoster vaccine recombinant administered N ote: [facility] bi-directional interface ; Source: Other Registry zoster vaccine recombinant administered N ote: [facility] bi-directional interface ; Source: Other Registry Afluria Qd administered Note: M [facility] bi-directional interface ; Source: Other Registry Afluria Qd administered Note: M [facility] bi-directional interface ; Source: Other Registry Afluria Qd administered Note: M [facility] bi-directional interface ; Source: Other Registry Afluria Qd administered Note: M [facility] bi-directional interface ; Source: Other Registry influenza virus vaccine, unspecified formulation administered Note: [facility] bi-di rectional interface ; Source: Other Registry Influenza, seasonal, injectable administe red Note: [facility] bi- directional interface ; Source: Other Registry Novel [id number], injectable administered Note: [facility] bi-direct ional interface ; Source: Other Registry Payers Payer name Insurance type Covered alliance party ID Gregory rodas(s) [employer] [id number] Social History Type Description Quantity Date Captured Comments Sex Female Smoking Status No Information Chief Complaint And Reason For Visit No Information Reason For Referral Reason For Referral No Information Plan Of Treatment Date Type Action Status Appointment Sanam Darling BOOKED History Of Present Illness Encounter Date Complaint History Of Prese nt Illness GI Symptoms or Concerns GI Symptoms or Concerns Functional Status Date Functional Assessmen t No Information Instructions Date Instruction Additional Infor mation Colon Cancer Prevention Related to Colorectal polyp detected on colonoscopy Colon Polyps Related to Color ectal polyp detected on colonoscopy Colon Cancer Prevention Related to Colorectal polyps Colon Polyps Related to Color ectal polyps Hemorrhoids (External) Related t o Colorectal polyps High Fiber Diet Related to Color ectal polyps Colon Cancer Prevention Related to History of adenomatous polyp of colon Colon Polyps Related to Histo ry of adenomatous polyp of colon Colon Cancer Prevention Related to History of adenomatous polyp of colon Assessments Type Assessment Date No Information Patient Care Teams Name Effective Dates (start - stop) Status Members No Information
--- OUTSIDE RECORDS SUMMARY | 2024-01-11 07:24 | XMS_ITS | Referral Summary ---
Author Name Unknown Organization [facility] Address [address] [place] [address] Care Team Providers Care Bar Machine Operator Name Role Phone Amparo Victoria MD Primary [...] Dates Next Due Influenza (IIV3) PF 07/18/2011 Social History Tobacco Use Types Packs/Day Years [...] 170.2 cm (5' 7) 08/07/2011 9:08 AM EARTH OBSERVATIONS CHIEF SCIENTIST Body Mass Index - - Plan of Treatment Not on file Procedures Procedure Name Priority Date/Time Associated Diagnosis Comments COMPREHENSIVE METABOLIC PANEL STAT 05/16/2017 10:50 AM CDT TSH WITH FREE T4 REFLEX Routine 05/16/2017 10:50 AM CDT Chest pain, unspecified type MA DIAGNOSTIC DIGITAL RIGHT Routine 10/27/2015 10:50 AM EARTH OBSERVATIONS CHIEF SCIENTIST Follow-up exam, 3-6 months since previous exam [...] - 4.00 mU/L 05/16/2017 2:04 PM CDT [facility] 05/16/2017 10:5 0 AM CDT 05/16/2017 11:45 AM CDT Jillian Raymond MD LAB - BLOOD ORDERABL ES [facility] Param [place] [id number], [facility] [phone] * (ABNORMAL) Comprehensive metabolic panel (05/16/2017 10:50 AM CDT) Sodium 142 133 - 144 mmol/L 05/16/2017 12:10 PM [facility] Potassium 3.3(L) 3.4 - 5.3 mmol/L 05/16/2017 12:10 PM [facility] Chloride 106 94 - 109 mmol/L 05/16/2017 12:10 PM [facility] Carbon Dioxide 25 20 - 32 mmol/L 05/16/2017 12:10 PM [facility] Anion Gap 11 3 - 14 mmol/L 05/16/2017 12:10 PM [facility] Glucose 96 70 - 99 mg/dL 05/16/2017 12:10 PM [facility] Urea Nitrogen 11 7 - 30 mg/dL 05/16/2017 12:10 PM [facility] Creatinine 0.68 0.52 - 1.04 mg/dL 05/16/2017 12:10 PM [facility] GFR Estimate >90 >60 mL/min/1.7 m2 05/16/2017 12:10 PM [facility] Comment:Non GFR Calc GFR Estimate If Black >90 >60 mL/min/1.7 m2 05/16/2017 12:10 PM [facility] Comment: GFR Calc Calcium 8.8 8.5 - 10.1 mg/dL 05/16/2017 12:10 PM [facility] Bilirubin Total 0.6 0.2 - 1.3 mg/dL 05/16/2017 12:10 PM [facility] Albumin 4.1 3.4 - 5.0 g/dL 05/16/2017 12:10 PM [facility] Protein Total 7.6 6.8 - 8.8 g/dL 05/16/2017 12:10 PM [facility] Alkaline Phosphatase 62 40 - 150 U/L 05/16/2017 12:10 PM [facility] ALT 33 0 - 50 U/L 05/16/2017 12:10 PM CDT [facility] AST 21 0 - 45 U/L 05/16/2017 12:10 PM CDT [facility] Blood specimen (specimen) 05/16/2017 10:50 AM CDT 05/16/2017 11:45 AM CDT Jillian Raymond MD LAB - BLOOD ORDERABL ES [facility] [address] [phone] * MA Diagnostic Digital Right (10/27/2015 10:50 AM EARTH OBSERVATIONS CHIEF SCIENTIST) Anatomical Region Laterality Modality Breast Right Mammography Impressions 10/27/2015 10:55 AM EARTH OBSERVATIONS CHIEF SCIENTIST IMPRESSION: BI-RADS CATEGORY: 2 - Benign Finding(s) RECOMMENDED FOLLOW-UP: Annual Mammography CRISTINA JEFF MD Narrative 10/27/2015 10:55 AM EARTH OBSERVATIONS CHIEF SCIENTIST DIAGNOSTIC MAMMOGRAM RIGHT DIGITAL w/CAD ??10/27/15 HISTORY: [...] Mammography CRISTINA JEFF MD Amparo Victoria MD IMG MAMMOGRAPHY TED JIN * PAP IMAGED THIN LAYER SCREEN (07/18/2011 2:32 PM CDT) PAP OTHER-NIL EM>40 COPATH Copath Report Patient Name: FRITZ DARLING MR#: [id number] Specimen #: [id number] Collected: 07/18/2011 Received: 07/19/2011 Reported: 07/21/2011 07:51 Ordering Phy(s): APIRL FUENTES SPECIMEN/STAIN PROCESS: Pap imaged thin layer [...] Hunter Lam M.D. Processed and screened at [facility], [facility] CLINICAL HISTORY: Previous normal pap: 06/12/2007, Papanicolaou Test Limitations: ??Cervical cytology is a screening test with limited sensitivity; regular screening is critical for cancer prevention; Pap tests are primarily effective for the diagnosis/preventi on of squamous cell carcinoma, not adenocarcinomas or other cancers. TESTING LAB LOCATION: [address] ??[address] COLLECTION SITE: Client: ??[facility] Location: [facility] Cytologic material (specimen) 07/18/2011 2:32 PM CDT 07/19/2011 1:27 PM CDT April Fuentes MD LAB - OPTIME CLIN ICAL SPECIMEN COPATH * Lipid panel reflex to direct LDL (07/18/2011 2:32 PM CDT) Cholesterol 176 0 - 200 mg/dL [facility] Comment: LDL Cholesterol is the primary guide to therapy. The NCEP recommends further evaluation of: patients with cholesterol greater than 200 mg/dL if additional risk factors are present, cholesterol greater than 240 mg/dL, triglycerides greater than 150 mg/dL, or HDL less than 40 mg/dL. Triglycerides 89 0 - 150 mg/dL [facility] HDL Cholesterol 60 50 - 110 mg/dL [facility] LDL Cholesterol Calculated 98 0 - 129 mg/dL [facility] Comment: LDL Cholesterol is the primary guide to therapy: LDL-cholesterol goal in high risk patients is <100 mg/dL and in very high risk patients is <70 mg/dL. VLDL-Cholesterol 18 0 - 30 mg/dL [facility] Cholesterol/HDL Ratio 2.9 0.0 - 5.0 [facility] Blood specimen (specimen) 07/18/2011 2:32 PM CDT 07/18/2011 2:33 PM CDT April Fuentes MD LAB - BLOOD ORDER SHENA Performing Organization Address City/[facility]/ZIP Co de Phone Number [facility] from Last 3 Months or Most Recently Relevant to Health Maintenance Care Teams Bar Machine Operator Relationship Specialty Start Date [place] [address] PCP - General Internal Medicine 03/30/15
== END 2024-01-08 07:36 | disposition home or self-care (01) ==
LOC: NFLDREF 01-11 07:21
PROVIDERS: PCP Internal Medicine; Referring Provider Internal Medicine; Visit Provider Internal Medicine
DX: E78.5 Hyperlipidemia, unspecified (principal); E03.2 Hypothyroidism due to medicaments and other exogenous substances; Z92.3 Personal history of irradiation
CPT/HCPCS: 80061; 84439; 84443

== ENCOUNTER 2024-02-14 12:52 | Outpatient (CLI) | payer OTHER, SELFPAY ==
--- OUTSIDE RECORDS SUMMARY | 2024-02-14 12:56 | XMS_ITS | Clinical Summary ---
Author Name Unknown Organization [facility] Address [address] [place] [address] Care Team Providers Care Health Diagnostics Teacher Name Role Phone Unavailable Primary Care Provider Unavailabl e Source Comments You are receiving this document as you are listed as the primary care provider,follow-up provider, or the patient has been referred to you for consultation.This is in compliance with the Medicare and[facility] EHR Incentive Program,which states Providers who transition their patient to another setting of careor provider of care or refers their patient to another provider of care shouldprovide summary care record for each transition of care or referral. [facility] Allergies No known active allergies Medications Medication Sig Dispensed Refills Start Date End Date Status estradiol (CLIMARA) 0.05 MG/24HR weekly patch Apply 1 Patch to skin once every week. 10/28/2023 Active levothyroxine (SYNTHROID) 150 MCG tablet Take 1 Tablet (150 mcg) by mouth daily. 11/03/2023 Active Encounters Date Type Department Care Team Description 12/19/2023 2:15 PM CDT Phone Visit Orthopedics at [facility] Orthopedic [address] [address] Dianelys Madera MD Ulnar nerve compression at multiple levels, unspecified laterality (Primary Dx); Hand numbness 12/18/2023 Telephone Orthopedics at [address] [address] Dianelys Madera MD EMG RESULTS 12/06/2023 12:30 PM FOREST BIOMETRICS PROFESSOR [facility] Visit [facility] EEG/EMG [address] [place] [address] Spencer Davis MD Ulnar nerve compression at multiple levels, unspecified laterality (Primary Dx); Cervical radiculopathy 11/16/2023 4:20 PM FOREST BIOMETRICS PROFESSOR Office Visit [facility] [address] [facility] [place] [address] Dianelys Madera MD Ulnar nerve compression at [...] Comments EMG REPORT Routine 12/06/2023 12:30 PM FOREST BIOMETRICS PROFESSOR Ulnar nerve compression at multiple levels, unspecified laterality from Last 3 Months Results * EMG REPORT [[id number]] (12/06/2023 12:30 PM FOREST BIOMETRICS PROFESSOR) Narrative EXTERNAL RESULTS - 12/06/2023 12:30 PM FOREST BIOMETRICS PROFESSOR Spencer Davis MD ? 12/06/2023 ??1:51 PM [facility] EMG Lab [address] [place] [address] ? Visit Date: 12/06/2023 12:41 PM ? Name: Sanam Darling Patient MR#: [id number] Date of : 1965 Age: 58 Years [...] Elbow. Flexed, Concentric Needle Electrode. Instrument used: Ag[employer]ared EDX File: [id number] Dianelys Madera MD [employer] EXTERNAL RESULTS from Last 3 Months Sanam Darling Personal/Family Self 1965 ([place]) [address] [place] [address]
--- OUTSIDE RECORDS SUMMARY | 2024-02-14 12:56 | XMS_ITS | Clinical Summary ---
Author Name Unknown Organization [facility] Address [address] [place] [address] Care Team Providers Care Control Room Helper Name Role Phone Amparo Victoria MD Primary [...] 170.2 cm (5' 7) 08/07/2011 9:08 AM CIGAR BANDER HAND Body Mass Index - - Plan of [...] COVID-19 Vaccine ( season) 2023 01/27/2021, 12/30/2020 PHQ-2 (once per calendar year) 2023 INFLUENZA VACCINE (Season Ended) 2024 07/05/2021, 05/25/2019, 05/20/2018, Additional history exists ZOSTER IMMUNIZATION Completed 11/03/2020, 0 HPV IMMUNIZATION [...] DIAGNOSTIC DIGITAL RIGHT Routine 10/27/2015 10:50 AM CIGAR BANDER HAND Follow-up exam, 3-6 months since previous exam [...] - 4.00 mU/L 05/16/2017 2:04 PM CDT [facility] 05/16/2017 10:5 0 AM CDT 05/16/2017 11:45 AM CDT Jillian Raymond MD LAB - BLOOD ORDERABL ES [facility] [address] [place] [id number], [facility] [phone] * (ABNORMAL) Comprehensive metabolic panel (05/16/2017 10:50 AM CDT) Sodium 142 133 - 144 mmol/L 05/16/2017 12:10 PM [facility] Potassium 3.3(L) 3.4 - 5.3 mmol/L 05/16/2017 12:10 PM [facility] Chloride 106 94 - 109 mmol/L 05/16/2017 12:10 PM [facility] Carbon Dioxide 25 20 - 32 mmol/L 05/16/2017 12:10 PM [facility] Anion Gap 11 3 - 14 mmol/L 05/16/2017 12:10 PM [facility] Glucose 96 70 - 99 mg/dL 05/16/2017 12:10 PM [facility] Urea Nitrogen 11 7 - 30 mg/dL 05/16/2017 12:10 PM [facility] Creatinine 0.68 0.52 - 1.04 mg/dL 05/16/2017 12:10 PM [facility] GFR Estimate >90 >60 mL/min/1.7 m2 05/16/2017 12:10 PM [facility] Comment:Non GFR Calc GFR Estimate If Black >90 >60 mL/min/1.7 m2 05/16/2017 12:10 PM [facility] Comment: GFR Calc Calcium 8.8 8.5 - 10.1 mg/dL 05/16/2017 12:10 PM [facility] Bilirubin Total 0.6 0.2 - 1.3 mg/dL 05/16/2017 12:10 PM [facility] Albumin 4.1 3.4 - 5.0 g/dL 05/16/2017 12:10 PM [facility] Protein Total 7.6 6.8 - 8.8 g/dL 05/16/2017 12:10 PM [facility] Alkaline Phosphatase 62 40 - 150 U/L 05/16/2017 12:10 PM [facility] ALT 33 0 - 50 U/L 05/16/2017 12:10 PM CDT [facility] AST 21 0 - 45 U/L 05/16/2017 12:10 PM CDT [facility] Blood specimen (specimen) 05/16/2017 10:50 AM CDT 05/16/2017 11:45 AM CDT Jillian Raymond MD LAB - BLOOD ORDERABL ES [facility] [address] [place], [place] [address] [phone] * MA Diagnostic Digital Right (10/27/2015 10:50 AM CIGAR BANDER HAND) Anatomical Region Laterality Modality Breast Right Mammography Impressions 10/27/2015 10:55 AM CIGAR BANDER HAND IMPRESSION: BI-RADS CATEGORY: 2 - Benign Finding(s) RECOMMENDED FOLLOW-UP: Annual Mammography CRISTINA JEFF MD Narrative 10/27/2015 10:55 AM CIGAR BANDER HAND DIAGNOSTIC MAMMOGRAM RIGHT DIGITAL w/CAD ??10/27/15 HISTORY: [...] Mammography CRISTINA JEFF MD Amparo Victoria MD [facility] MAMMOGRAPHY TED JIN * PAP IMAGED THIN LAYER SCREEN (07/18/2011 2:32 PM CDT) PAP OTHER-NIL EM>40 COPATH Copath Report Patient Name: FRITZ DARLING MR#: [id number] Specimen #: [id number] Collected: 07/18/2011 Received: 07/19/2011 Reported: 07/21/2011 07:51 [...] Hunter Lam M.D. Processed and screened at [facility] CLINICAL HISTORY: Previous normal pap: 06/12/2007, Papanicolaou Test Limitations: ??Cervical cytology is a screening test with limited sensitivity; regular screening is critical for cancer prevention; Pap tests are primarily effective for the diagnosis/preventi on of squamous cell carcinoma, not adenocarcinomas or other cancers. TESTING LAB LOCATION: [address] ??[address] COLLECTION SITE: Client: ??[facility] Location: [facility] (R) [facility] Cytologic material (specimen) 07/18/2011 2:32 PM CDT 07/19/2011 1:27 PM CDT April Fuentes MD LAB - OPTIME CLIN ICAL SPECIMEN COPATH * Lipid panel reflex to direct LDL (07/18/2011 2:32 PM CDT) Cholesterol 176 0 - 200 mg/dL [facility] Comment: LDL Cholesterol is the primary guide to therapy. The NCEP recommends further evaluation of: patients with cholesterol greater than 200 mg/dL if additional risk factors are present, cholesterol greater than 240 mg/dL, triglycerides greater than 150 mg/dL, or HDL less than 40 mg/dL. Triglycerides 89 0 - 150 mg/dL [facility] HDL Cholesterol 60 50 - 110 mg/dL [facility] LDL Cholesterol Calculated 98 0 - 129 mg/dL [facility] Comment: LDL Cholesterol is the primary guide to therapy: LDL-cholesterol goal in high risk patients is <100 mg/dL and in very high risk patients is <70 mg/dL. VLDL-Cholesterol 18 0 - 30 mg/dL [facility] Cholesterol/HDL Ratio 2.9 0.0 - 5.0 [facility] Blood specimen (specimen) 07/18/2011 2:32 PM CDT 07/18/2011 2:33 PM CDT April Fuentes MD LAB - BLOOD ORDER SHENA Performing Organization Address City/[facility]/ZIP Co de Phone Number [facility] from Last 3 Months or Most Recently Relevant to Health Maintenance Care Teams Control Room Helper Relationship Specialty Start Date End Date Amparo Victoria MD [address] [address] PCP - General Internal Medicine 03/30/15
--- OUTSIDE RECORDS SUMMARY | 2024-02-14 12:56 | XMS_ITS | Continuity of Care Document ---
Author Name Unknown Organization [facility] Address [address] [place] [address] Phone Care Team Providers Care Digital Imaging Specialist Name Role Phone Deniz Akhtar MD Unavailable Unavailable Allergies, Adverse Reactions, Alerts Substance Reaction Status Criticality No Known Allergies Active No Inform ation Medications Medication Instructions Dosage Effective Dates (start - stop) Status Comments SYNTHROID (unknown strength) Not Available - Active Procedures Procedure Date Office/Outpatient Visit,[facility] Advance Directives Directive Yes / No Effective Date File Name No Information Encounters Encounter Description Practice Location Reason(s) For Visit Diagnoses Date Provider Providers Copied on Encounter Office/Outpati ent Visit,[facility] , [address], [place], [place], [id number], [place] tel:[phone] [facility] Other spondylosis , cervical regionRadic ulopathy, cervical region Hermilo Guaman. [facility], [address] [place] [address], [address], [id number], [place]. tel:[phone] Referring Provider: Deniz Akhtar, [facility] [address], [address], [place], [address]. tel:[phone] Family History Family Member Type Diagnosis Age At Onset No Information Payers Payer name Insurance type Covered constitution party ID Authoramelie rodas(s) [facility] [id number] Social History Type Description Quantity Date Captured [...]
--- OUTSIDE RECORDS SUMMARY | 2024-02-14 12:56 | XMS_ITS | Continuity of Care Document ---
Author Name Unknown Organization [facility] Address [address] [address] [place] [address] Phone Care Team Providers Care Electronic Musical Instrument Repairer Name Role Phone Bertrand Gee MD, [place] [...] Diagnoses Date Provider Providers Copied on Encounter [facility], [address] [address], [place], [id number], tel:[phone] [facility] No Information 4 Bertrand Gregory. [address] [facility], [place], [place], [address] , [place]. tel:[phone] [facility], [address] [address], [place], [place], [address], [place] tel:[phone] [facility] GI Symptoms or Concerns (chief complaint) Colorectal polyp detected on colonoscopySerrat ed polyposis syndromeEncounter for screening for malignant neoplasm of colonPersonal history of colonic polypsBenign neoplasm of colon, unspecified 4 Pedro Braxton. [address] [facility], [address], [place], [place], [address] , [place]. tel:[phone] Referring Provider: Referral Self, USE FOR SELF REFERRALS. [facility], [address] [address], [place], [place], [address], [place] tel:[phone] [facility] No Information 3 Bertrand Gregory. [address] [facility], [address], [place], [place], [address] , [place]. tel:[phone] [facility], [address] [address], [place], [place], [address], [place] tel:[phone] [facility] GI Symptoms or Concerns (chief complaint) Colorectal polypsHemorrhoids , externalEncounter for screening for malignant neoplasm of colonPersonal history of colonic polypsBenign neoplasm of ascending colonBenign neoplasm of transverse colonBenign neoplasm of transverse colonBenign neoplasm of ascending colon 3 Pedro Braxton. [address] [facility], [address], [place], [place], [address] , [place]. tel:[phone] Referring Provider: Referral Self, USE FOR SELF REFERRALS. [facility], [address] [address], [place], [place], [address], [place] tel:[phone] [facility] No Information 2 Bertrand Gregory. [address] [facility], [address], [place], [place], [address] , [place]. [phone] [facility], [address] [address], [place], [address], [place] tel:[phone] [facility] No Information 2 Bertrand Gregory. [address] [facility], [address], [place], [place], [address] , [place]. tel:[phone] [facility], [address] [address], [place], [address], [place] tel:[phone] [facility] Colorectal polyp detected on colonoscopyHistor y of adenomatous polyp of colonEncounter for screening for malignant neoplasm of colonOther specified congenital malformations of intestineEncounte r for screening for malignant neoplasm of colonOther specified congenital malformations of intestinePolyp of colonPersonal history of colonic polyps 9 Pedro Braxton. [address] [facility], [address], [place], [place], [address] , [place]. [phone] Referring Provider: Referral Self, USE FOR SELF REFERRALS. [facility], [address] [address], [place], [address], [place] tel:[phone] [facility] History of adenomatous polyp of colonOther specified diseases of intestinePersonal history of colonic polyps 9 Pedro Braxton. [address] [facility], [address], [place], [place], [address] , [place]. [phone] Referring Provider: Amparo Dempsey, [address] [facility], [place], [address]. tel:[phone] [facility], [address] [address], [place], [address], [place] tel:[phone] [facility] No Information 1 Kodak Case. [address] [facility], [address], [place], [place], [address] , [place]. [phone] Referring Provider: Manpreet Candelario MD, [address] [facility] [address], [place], [address] . tel:[phone] Family History Family Member Type Diagnosis Age [...] directional interface ; Source: Other Registry Novel [id number], injectable administered Note: [facility] bi-direct ional interface ; Source: Other Registry Payers Payer name Insurance type Covered constitution party ID Gregory rodas(s) [employer] [id number] Social History Type Description Quantity Date Captured [...]
--- OUTSIDE RECORDS SUMMARY | 2024-02-14 12:56 | XMS_ITS | Encounter Summary ---
Author Name Unknown Organization [facility] Address [address], [place] [address] Care Team Providers Care Social Sciences Chair Name Role Phone Unavailable Primary Care Provider Unavailabl e Reason for Visit * Reason Comments EMG RESULTS Encounter Details Date Type Department Care Team (Late st Contact Info) Description 12/18/2023 Telephone Orthopedics at [facility] [address] [place] [address] Dianelys Madera MD [address] [place] [address] EMG RESULTS Social History Tobacco Use [...]
--- OUTSIDE RECORDS SUMMARY | 2024-02-14 12:56 | XMS_ITS | Encounter Summary ---
Author Name Unknown Organization [facility] Address [address] [place] [address] Care Team Providers Care Typewriter Ribbon Winder Name Role Phone Unavailable Primary Care Provider Unavailabl e Reason for Referral * Procedure/Equipment (Routine) - New Request Specialty Diagnoses / Procedures Referred By Benoit t Referred To Contact Diagnoses Ulnar nerve compression at multiple levels, unspecified laterality Dianelys Madera MD [address] [place] [address] Referral ID Status Reason Start Date Expiration Date V isits Requested Visits Authorized [id number] New Request 11/16/2023 02/14/2025 1 1 Scheduling Instructions Scheduling Instructions (EMG): If an appointment with [facility] was advised please call [phone] at the [facility] for assistance. We suggest you [...] eval cervical radiculopathy vs cubital tunnel syndrome [facility] Reason for Visit * Reason Comments CONSULT Left hand numbness Encounter Details Date Type Department Care Team (Late st Contact Info) Description 11/16/2023 4:20 PM [facility] Office Visit Specialty [facility] [address] [place] [address] Dianelys Madera MD [address] [place] [address] Ulnar nerve compression at multiple [...] Dianelys Madera MD - 11/16/2023 4:20 PM [facility] Reason for today's visit: left hand numbness [...] on-line services/e-mail) or call my office at [phone]. Your follow up appointment will be scheduled with one of the Orthopaedic Hand Surgery Department team members. This may be one of our physician assistants. They are always in direct communication with your physician. Thank you for continuing to trust us with your care. We are your partner. [facility] documented in this encounter Progress Notes * [...] extremity EMG has not previously been obtained. [facility] documented in this encounter Plan of Treatment Scheduled Referrals Name Type Priority Associated Diagnoses Orde r Schedule Emg-Electromyography Adult Referral Routine Ulnar nerve compression at multiple levels, unspecified laterality Ordered: 11/16/2023 documented as of this encounter Visit Diagnoses Diagnosis Ulnar nerve compression at multiple levels, unspecified laterality- Primary documented in this encounter
--- OUTSIDE RECORDS SUMMARY | 2024-02-14 12:56 | XMS_ITS | Encounter Summary ---
Author Name Unknown Organization [facility] Address [address] [place] [address] Care Team Providers Care Cherry Cutter Name Role Phone Unavailable Primary Care Provider Unavailabl e Reason for Visit * Procedure/Equipment (Routine) - New Request Specialty Diagnoses / Procedures Referred By Benoit t Referred To Contact Diagnoses Ulnar nerve compression at multiple levels, unspecified laterality Madera, Dianelys Landaverde MD [address] [place] [address] Referral ID Status Reason Start Date Expiration Date V isits Requested Visits Authorized [id number] New Request 11/16/2023 02/14/2025 1 1 Encounter Details Date Type Department Care Team (Latest Contact Info) Description 12/06/2023 12:30 PM BOILER ERECTOR Office Visit [facility] EEG/EMG [address] [facility] [place] [address] Spencer Davis MD [address] [place] [address] Ulnar nerve compression at multiple [...] Instructions* Rupinder Michelle - 12/06/2023 12:30 PM BOILER ERECTOR The results of your EMG exam will [...] concerns, please contact us. Call for the [facility] Neurology EMG Clinic in [place]. ER ERECTOR documented in this encounter Progress Notes * Spencer Davis MD - 12/06/2023 12:30 PM CST See procedure note. Spencer Davis MD 12/06/2023, 1:11 PM Department of Neurology [facility] ER ERECTOR documented in this encounter Procedure Notes * Spencer Davis MD - 12/06/2023 12:30 PM CSTAssociated Order(s): EMG REPORT [facility] EMG Lab [address] [place] [address] Visit Date: 12/06/2023 12:41 PM Name: Sanam Darling Patient MR#: [id number] Date of : 1965 Age: 58 Years [...] Elbow. Flexed, Concentric Needle Electrode. Instrument used: Agitar EDX File: [id number] ER ERECTOR documented in this encounter Plan of Treatment Not on file documented as of this encounter Procedures Procedure Name Priority Date/Time Associated Diagnosis Comments EMG REPORT Routine 12/06/2023 12:30 PM BOILER ERECTOR Ulnar nerve compression at multiple levels, unspecified laterality documented in this encounter Results * EMG REPORT [[id number]] (12/06/2023 12:30 PM BOILER ERECTOR) Narrative EXTERNAL RESULTS - 12/06/2023 12:30 PM BOILER ERECTOR Spencer Davis MD ? 12/06/2023 ??1:[address] [facility] EMG Lab [address] [place] [address] ? Visit Date: 12/06/2023 12:41 PM ? Name: Sanam Darling Patient MR#: [id number] Date of : 1965 Age: 58 Years [...] Elbow. Flexed, Concentric Needle Electrode. Instrument used: Agitar EDX File: [id number] Dianelys Madera MD [employer] EXTERNAL RESULTS documented in this encounter Visit Diagnoses Diagnosis Ulnar nerve compression at multiple levels, unspecified laterality- Primary Cervical radiculopathy Brachial neuritis or radiculitis nos documented in this encounter
--- OUTSIDE RECORDS SUMMARY | 2024-02-14 12:56 | XMS_ITS | Encounter Summary ---
Author Name Unknown Organization [facility] Address [address], [place] [address] Care Team Providers Care Industrial Eng Name Role Phone Unavailable Primary Care Provider Unavailabl e Reason for Visit * Reason Comments Phone Visit Encounter Details Date Type Department Care Team (Late st Contact Info) Description 12/19/2023 2:15 PM CDT Phone Visit Orthopedics at [facility] Orthopedic [place] [address] [place], [place] [id number] Dianelys Madera MD [address] [place] [address] Ulnar nerve compression at multiple levels, unspecified [...]
--- OUTSIDE RECORDS SUMMARY | 2024-02-14 12:57 | XMS_ITS | Referral Summary ---
Author Name Unknown Organization [place] [facility] Address [address] [place] [address] Care Team Providers Care Burr Grinder Name Role Phone Amparo Victoria MD Primary [...] 170.2 cm (5' 7) 08/07/2011 9:08 AM MECHANICAL SERVICE TECHNICIAN Body Mass Index - - Plan of Treatment Not on file Procedures Procedure Name Priority Date/Time Associated Diagnosis Comments COMPREHENSIVE METABOLIC PANEL STAT 05/16/2017 10:50 AM CDT TSH WITH FREE T4 REFLEX Routine 05/16/2017 10:50 AM CDT Chest pain, unspecified type MA DIAGNOSTIC DIGITAL RIGHT Routine 10/27/2015 10:50 AM MECHANICAL SERVICE TECHNICIAN Follow-up exam, 3-6 months since previous exam [...] - 4.00 mU/L 05/16/2017 2:04 PM CDT [facility] 05/16/2017 10:5 0 AM CDT 05/16/2017 11:45 AM CDT Jillian Raymond MD LAB - BLOOD ORDERABL ES [facility] [address] [place] [id number], [facility] [phone] * (ABNORMAL) Comprehensive metabolic panel (05/16/2017 10:50 AM CDT) Sodium 142 133 - 144 mmol/L 05/16/2017 12:10 PM [facility] Potassium 3.3(L) 3.4 - 5.3 mmol/L 05/16/2017 12:10 PM [facility] Chloride 106 94 - 109 mmol/L 05/16/2017 12:10 PM [facility] Carbon Dioxide 25 20 - 32 mmol/L 05/16/2017 12:10 PM [facility] Anion Gap 11 3 - 14 mmol/L 05/16/2017 12:10 PM [facility] Glucose 96 70 - 99 mg/dL 05/16/2017 12:10 PM [facility] Urea Nitrogen 11 7 - 30 mg/dL 05/16/2017 12:10 PM [facility] Creatinine 0.68 0.52 - 1.04 mg/dL 05/16/2017 12:10 PM [facility] GFR Estimate >90 >60 mL/min/1.7 m2 05/16/2017 12:10 PM [facility] Comment:Non GFR Calc GFR Estimate If Black >90 >60 mL/min/1.7 m2 05/16/2017 12:10 PM [facility] Comment: GFR Calc Calcium 8.8 8.5 - 10.1 mg/dL 05/16/2017 12:10 PM [facility] Bilirubin Total 0.6 0.2 - 1.3 mg/dL 05/16/2017 12:10 PM [facility] Albumin 4.1 3.4 - 5.0 g/dL 05/16/2017 12:10 PM [facility] Protein Total 7.6 6.8 - 8.8 g/dL 05/16/2017 12:10 PM [facility] Alkaline Phosphatase 62 40 - 150 U/L 05/16/2017 12:10 PM [facility] ALT 33 0 - 50 U/L 05/16/2017 12:10 PM CDT [facility] AST 21 0 - 45 U/L 05/16/2017 12:10 PM CDT [facility] Blood specimen (specimen) 05/16/2017 10:50 AM CDT 05/16/2017 11:45 AM CDT Jillian Raymond MD LAB - BLOOD ORDERABL ES [facility] [address] [phone] * MA Diagnostic Digital Right (10/27/2015 10:50 AM MECHANICAL SERVICE TECHNICIAN) Anatomical Region Laterality Modality Breast Right Mammography Impressions 10/27/2015 10:55 AM MECHANICAL SERVICE TECHNICIAN IMPRESSION: BI-RADS CATEGORY: 2 - Benign Finding(s) RECOMMENDED FOLLOW-UP: Annual Mammography CRISTINA JEFF MD Narrative 10/27/2015 10:55 AM MECHANICAL SERVICE TECHNICIAN DIAGNOSTIC MAMMOGRAM RIGHT DIGITAL w/CAD ??10/27/15 HISTORY: [...] Copath Report Patient Name: FRITZ DARLING MR#: [id number] Specimen #: [id number] Collected: 07/18/2011 Received: 07/19/2011 Reported: 07/21/2011 07:51 [...] Hunter Lam M.D. Processed and screened at [facility] CLINICAL HISTORY: Previous normal pap: 06/12/2007, Papanicolaou Test Limitations: ??Cervical cytology is a screening test with limited sensitivity; regular screening is critical for cancer prevention; Pap tests are primarily effective for the diagnosis/preventi on of squamous cell carcinoma, not adenocarcinomas or other cancers. TESTING LAB LOCATION: [address] ??[address] COLLECTION SITE: Client: ??[facility] Location: [facility] Cytologic material (specimen) 07/18/2011 2:32 PM CDT 07/19/2011 1:27 PM CDT April Fuentes MD LAB - OPTIME CLIN ICAL SPECIMEN COPATH * Lipid panel reflex to direct LDL (07/18/2011 2:32 PM CDT) Cholesterol 176 0 - 200 mg/dL [facility] Comment: LDL Cholesterol is the primary guide to therapy. The NCEP recommends further evaluation of: patients with cholesterol greater than 200 mg/dL if additional risk factors are present, cholesterol greater than 240 mg/dL, triglycerides greater than 150 mg/dL, or HDL less than 40 mg/dL. Triglycerides 89 0 - 150 mg/dL [facility] HDL Cholesterol 60 50 - 110 mg/dL [facility] LDL Cholesterol Calculated 98 0 - 129 mg/dL [facility] Comment: LDL Cholesterol is the primary guide to therapy: LDL-cholesterol goal in high risk patients is <100 mg/dL and in very high risk patients is <70 mg/dL. VLDL-Cholesterol 18 0 - 30 mg/dL [facility] Cholesterol/HDL Ratio 2.9 0.0 - 5.0 [facility] Blood specimen (specimen) 07/18/2011 2:32 PM CDT 07/18/2011 2:33 PM CDT April Fuentes MD LAB - BLOOD ORDER SHENA Performing Organization Address City/[facility]/ZIP Co de Phone Number [facility] from Last 3 Months or Most Recently Relevant to Health Maintenance Care Teams Burr Grinder Relationship Specialty Start Date [place] [address] PCP - General Internal Medicine 03/30/15
--- OUTSIDE RECORDS SUMMARY | 2024-02-14 12:57 | XMS_ITS | Clinical Summary ---
Author Name Unknown Organization [employer] [facility] Address [place], [place] [address] Care Team Providers Care Criminal Justice Instructor Name Role Phone Amparo Victoria MD Primary Care Provider [phone] Allergies No known active allergies Medications Medication Sig Dispensed Refills Start Date End Date Status ACETAMINOPHEN 325 MG TAB Take 1-2 325mg tablets by mouth every 4 hours for pain as needed. 0 0 05/10/2006 Active IBUPROFEN 200 MG CAP Take 1-3 200mg tablets by mouth every 6 hours for pain as needed 0 0 05/10/2006 Active [id number]-FE-FA TAB Take 1 tablet by mouth each [...] FFDM RIGHT (IA) Routine 08/18/2013 1:34 PM BLEACH ANALYST Follow up GYNECOLOGICAL PANEL Timed 08/19/2009 8 :35 AM BLEACH ANALYST from Last 3 Months or Most Recently Relevant to Health Maintenance Results * XR MAMMO UNI DIAG FFDM RIGHT (08/18/2013 1:34 PM BLEACH ANALYST) Anatomical Region Laterality Modality BREASTS, Breast Right Right Mammograph y 08/18/2013 1:46 PM BLEACH ANALYST Narrative 08/18/2013 2:03 PM BLEACH ANALYST [facility] XR MAMMO UNI DIAG [...] Procedure Note Elmo Pearce MD - 08/18/2013 [facility]ENTER XR MAMMO UNI DIAG FFDM [...] MAMMO * GYNECOLOGICAL PANEL (08/19/2009 8:35 AM BLEACH ANALYST) CYTOLOGY CYTOPATHOLOGY REPORT [facility] Status: Final Status ?[id number] CLINICAL INFORMATION Last Date of LMP ? :08/03/09 Last Pap Date ?: Last Pap Result ?:WNL [place]/Bx done today ? :No HPV Request ?:HPV [...] COLLECTED:08/19/09 ? ACCESSIONED: ??08/23/09 ?? SIGNED: ??08/30/09 [facility] PAP [place] CODE NIL [facility] 08/19/2009 8:35 AM BLEACH ANALYST 08/23/2009 8:35 AM BLEACH ANALYST Louise Emanuel PA-C PATHOLOGY/CYTOLOGY [facility] [place]NAL ZIP [address] [address] from Last 3 Months or Most Recently Relevant to Health Maintenance Advance Directives * Full Code (Latest Code Status on File) Date Activated Date Inactivated Comments 05/08/2006 6:17 PM 05/10/2006 4:18 PM * Full Code Date Activated Date Inactivated Comments 05/08/2006 7:48 AM 05/08/2006 6:17 PM Care Teams Criminal Justice Instructor Relationship Specialty Start Date End Date Amparo Victoria MD PCP - General Internal Medicine 02/20/13
--- NOTE | 2024-02-14 13:20 | MM_ITS ---
Patient: FRITZ HUSSEIN Facility:?[facility] Patient ID:?[id number] Site Patient ID:?[id number] Site :?1965 Study:?XRay-Breast Bilateral 3D W/CAD-02/14/2024 2:02:07 PM Ordering Physician:Amparo Miller Final Report: BILATERAL SCREENING MAMMOGRAM WITH COMPUTER-AIDED DETECTION AND TOMOSYNTHESIS TECHNIQUE: CC and MLO views were obtained. These mammographic images have been obtained using full-field digital technique. These mammographic images were interpreted with the benefit of computer-aided detection. Breast Tomosynthesis was used in this interpretation. COMPARISON FILM: 02/09/23, 12/01/21, 03/03/20. FINDINGS: The breasts are heterogeneously dense, which may obscure small masses. IMPRESSION: There is no radiographic evidence for malignancy. ASSESSMENT: BI-RADS Category 2: Benign RECOMMENDATION: Routine screening mammogram in 1 year. A lay language report of this examination will be provided to the patient. Spencer Murphy M.D. Diagnostic Radiologist [email or web address] DSM/sp R& Transcribed: 7:03 p.m. SP/Dictated by: Spencer Murphy MD @ 02/18/2024 8:52:00 AM Signed by:?Spencer Murphy MD @02/18/2024 8:47:45 PM (Electronic Signature)
== END 2024-02-14 12:53 | disposition home or self-care (01) ==
PROVIDERS: PCP Internal Medicine; Visit Provider Internal Medicine
DX: Z12.31 Encounter for screening mammogram for malignant neoplasm of breast (principal); R92.2 Inconclusive mammogram
CPT/HCPCS: 77063; 77067

== ENCOUNTER 2024-04-28 09:59 | Outpatient (CLI) | payer OTHER, SELFPAY ==
--- OUTSIDE RECORDS SUMMARY | 2024-04-29 11:53 | XMS_ITS | Clinical Summary ---
Author Organization [facility] Address [address], [place] [address] Care Team Providers Care Wash Worker Name Role Phone Unavailable Primary Care Provider Unavailabl e Source Comments You are receiving this document as you are listed as the primary care provider,follow-up provider, or the patient has been referred to you for consultation.This is in compliance with the Medicare and[facility] Hospital[facility] EHR Incentive Program,which states Providers who transition their patient to another setting of careor provider of care or refers their patient to another provider of care shouldprovide summary care record for each transition of care or referral. [employer] Allergies No known active allergies Medications Medication Sig Dispensed Refills Start Date End Date Status estradiol (CLIMARA) 0.05 MG/24HR weekly patch Apply 1 Patch to skin once every week. 10/28/2023 Active levothyroxine (SYNTHROID) 150 MCG tablet Take 1 Tablet (150 mcg) by mouth daily. 11/03/2023 Active Social History Tobacco Use Types Packs/Day Years [...] COVID-19 Vaccine ( season) 2023 01/27/2021, 12/30/2020 Influenza (#1) 2024 09/16/2023, 07/02, 07/05/2021, Additional history exists Zoster/Shingles Completed 11/03/2020, 03/01/2020 HepA Aged Out No longer eligi ble [...]
--- OUTSIDE RECORDS SUMMARY | 2024-04-29 11:54 | XMS_ITS | Continuity of Care Document ---
Author Organization [facility] Address [address] [place] [address] Phone Care Team Providers Care French Teacher Name Role Phone Deniz Akhtar MD Unavailable Unavailable Allergies, Adverse Reactions, Alerts Substance Reaction Status Criticality No Known Allergies Active No Inform ation Medications Medication Instructions Dosage Effective Dates (start - stop) Status Comments SYNTHROID (unknown strength) Not Available - Active Procedures Procedure Date Office/Outpatient Visit,[facility] [place] Advance Directives Directive Yes / No Effective Date File Name No Information Encounters Encounter Description Practice Location Reason(s) For Visit Diagnoses Date Provider Providers Copied on Encounter Office/Outpati ent Visit,[facility] , [address], [place], [place], [id number], [place] tel:[phone] [facility] Other spondylosis , cervical regionRadic ulopathy, cervical region Hermilo Guaman. [facility], [address] [place] [address], [address], [id number], [place]. tel:[phone] Referring Provider: Deniz Akhtar, [facility] [address] [place] [address], [facility] [address], [place], [address]. tel:[phone] Family History Family Member Type Diagnosis Age At Onset No Information Payers Payer name Insurance type Covered constitution party ID Gregory rodas(s) [facility] [id number] Social History Type Description Quantity Date Captured [...]
--- OUTSIDE RECORDS SUMMARY | 2024-04-29 11:54 | XMS_ITS | Referral Summary ---
Author Organization [facility] Address [address] [place] [address] Care Team Providers Care Soft Sugar Cutter Name Role Phone Amparo Victoria MD Primary Care Provider [phone] Allergies No known active allergies Medications Medication [...] Getting School Help Needed Not on file 10/15 /2023 Sex and Gender Information Value Date Recorded [...] 170.2 cm (5' 7) 08/07/2011 9:08 AM MEDICAL RECORD ASSISTANT Body Mass Index - - Plan of Treatment Not on file Procedures Procedure Name Priority Date/Time Associated Diagnosis Comments COMPREHENSIVE METABOLIC PANEL STAT 05/16/2017 10:50 AM CDT TSH WITH FREE T4 REFLEX Routine 05/16/2017 10:50 AM CDT Chest pain, unspecified type MA DIAGNOSTIC DIGITAL RIGHT Routine 10/27/2015 10:50 AM MEDICAL RECORD ASSISTANT Follow-up exam, 3-6 months since previous exam [...] - 4.00 mU/L 05/16/2017 2:04 PM CDT [facility] 05/16/2017 10:5 0 AM CDT 05/16/2017 11:45 AM CDT Jillian Raymond MD LAB - BLOOD ORDERABL ES [facility] [address] [place] [id number], [facility] [phone] * (ABNORMAL) Comprehensive metabolic panel (05/16/2017 10:50 AM CDT) Sodium 142 133 - 144 mmol/L 05/16/2017 12:10 PM [facility] Potassium 3.3(L) 3.4 - 5.3 mmol/L 05/16/2017 12:10 PM [facility] Chloride 106 94 - 109 mmol/L 05/16/2017 12:10 PM [facility] Carbon Dioxide 25 20 - 32 mmol/L 05/16/2017 12:10 PM [facility] Anion Gap 11 3 - 14 mmol/L 05/16/2017 12:10 PM [facility] Glucose 96 70 - 99 mg/dL 05/16/2017 12:10 PM [facility] Urea Nitrogen 11 7 - 30 mg/dL 05/16/2017 12:10 PM [facility] Creatinine 0.68 0.52 - 1.04 mg/dL 05/16/2017 12:10 PM [facility] GFR Estimate >90 >60 mL/min/1.7 m2 05/16/2017 12:10 PM [facility] Comment:Non GFR Calc GFR Estimate If Black >90 >60 mL/min/1.7 m2 05/16/2017 12:10 PM [facility] Comment: GFR Calc Calcium 8.8 8.5 - 10.1 mg/dL 05/16/2017 12:10 PM [facility] Bilirubin Total 0.6 0.2 - 1.3 mg/dL 05/16/2017 12:10 PM [facility] Albumin 4.1 3.4 - 5.0 g/dL 05/16/2017 12:10 PM [facility] Protein Total 7.6 6.8 - 8.8 g/dL 05/16/2017 12:10 PM [facility] Alkaline Phosphatase 62 40 - 150 U/L 05/16/2017 12:10 PM [facility] ALT 33 0 - 50 U/L 05/16/2017 12:10 PM CDT [facility] AST 21 0 - 45 U/L 05/16/2017 12:10 PM CDT [facility] Blood specimen (specimen) 05/16/2017 10:50 AM CDT 05/16/2017 11:45 AM CDT Jillian Raymond MD LAB - BLOOD ORDERABL ES [facility] [address] [place], [place] [address] [phone] * MA Diagnostic Digital Right (10/27/2015 10:50 AM MEDICAL RECORD ASSISTANT) Anatomical Region Laterality Modality Breast Right Mammography Impressions 10/27/2015 10:55 AM MEDICAL RECORD ASSISTANT IMPRESSION: BI-RADS CATEGORY: 2 - Benign Finding(s) RECOMMENDED FOLLOW-UP: Annual Mammography CRISTINA JEFF MD Narrative 10/27/2015 10:55 AM MEDICAL RECORD ASSISTANT DIAGNOSTIC MAMMOGRAM RIGHT DIGITAL w/CAD ??10/27/15 HISTORY: [...] Mammography CRISTINA JEFF MD Amparo Victoria MD [facility] MAMMOGRAPHY TED JIN * PAP IMAGED THIN LAYER SCREEN (07/18/2011 2:32 PM CDT) PAP OTHER-NIL EM>40 COPATH Copath Report Patient Name: FRITZ DARLING MR#: [id number] Specimen #: [id number] Collected: 07/18/2011 Received: 07/19/2011 Reported: 07/21/2011 07:51 [...] Hunter Lam M.D. Processed and screened at [facility], [facility] CLINICAL HISTORY: Previous normal pap: 06/12/2007, Papanicolaou Test Limitations: ??Cervical cytology is a screening test with limited sensitivity; regular screening is critical for cancer prevention; Pap tests are primarily effective for the diagnosis/preventi on of squamous cell carcinoma, not adenocarcinomas or other cancers. TESTING LAB LOCATION: [address] ??[address] COLLECTION SITE: Client: ??[facility] Location: [facility] Cytologic material (specimen) 07/18/2011 2:32 PM CDT 07/19/2011 1:27 PM CDT April Fuentes MD LAB - OPTIME CLIN ICAL SPECIMEN COPATH * Lipid panel reflex to direct LDL (07/18/2011 2:32 PM CDT) Cholesterol 176 0 - 200 mg/dL [facility] Comment: LDL Cholesterol is the primary guide to therapy. The NCEP recommends further evaluation of: patients with cholesterol greater than 200 mg/dL if additional risk factors are present, cholesterol greater than 240 mg/dL, triglycerides greater than 150 mg/dL, or HDL less than 40 mg/dL. Triglycerides 89 0 - 150 mg/dL [facility] HDL Cholesterol 60 50 - 110 mg/dL [facility] LDL Cholesterol Calculated 98 0 - 129 mg/dL [facility] Comment: LDL Cholesterol is the primary guide to therapy: LDL-cholesterol goal in high risk patients is <100 mg/dL and in very high risk patients is <70 mg/dL. VLDL-Cholesterol 18 0 - 30 mg/dL [facility] Cholesterol/HDL Ratio 2.9 0.0 - 5.0 [facility] Blood specimen (specimen) 07/18/2011 2:32 PM CDT 07/18/2011 2:33 PM CDT April Fuentes MD LAB - BLOOD ORDER SHENA Performing Organization Address City/[facility]/ZIP Co de Phone Number [facility] from Last 3 Months or Most Recently Relevant to Health Maintenance Care Teams Soft Sugar Cutter Relationship Specialty Start Date End Date Amparo Victoria MD [facility] [place] [address] PCP - General Internal Medicine 03/30/15
--- OUTSIDE RECORDS SUMMARY | 2024-04-29 11:54 | XMS_ITS | Clinical Summary ---
Author Organization [facility] Address [address] [place] [address] Care Team Providers Care Home Demonstration Agent Name Role Phone Amparo Victoria MD Primary [...] 170.2 cm (5' 7) 08/07/2011 9:08 AM DISTRESSER Body Mass Index - - Plan of [...] (once per calendar year) 2023 INFLUENZA VACCINE (#1) 2024 1, 05/25/2019, 05/20/2018, Additional history exists ZOSTER IMMUNIZATION [...] DIAGNOSTIC DIGITAL RIGHT Routine 10/27/2015 10:50 AM DISTRESSER Follow-up exam, 3-6 months since previous exam [...] ES [facility] [address] [place] [id number], [facility] [phone] * (ABNORMAL) Comprehensive metabolic panel (05/16/2017 10:50 AM CDT) Sodium 142 133 - 144 mmol/L 05/16/2017 12:10 PM [facility] Potassium 3.3(L) 3.4 - 5.3 mmol/L 05/16/2017 12:10 PM [facility] Chloride 106 94 - 109 mmol/L 05/16/2017 12:10 PM [facility] Carbon Dioxide 25 20 - 32 mmol/L 05/16/2017 12:10 PM [facility] Anion Gap 11 3 - 14 mmol/L 05/16/2017 12:10 PM [facility] Glucose 96 70 - 99 mg/dL 05/16/2017 12:10 PM [facility] Urea Nitrogen 11 7 - 30 mg/dL 05/16/2017 12:10 PM [facility] Creatinine 0.68 0.52 - 1.04 mg/dL 05/16/2017 12:10 PM [facility] GFR Estimate >90 >60 mL/min/1.7 m2 05/16/2017 12:10 PM [facility] Comment:Non GFR Calc GFR Estimate If Black >90 >60 mL/min/1.7 m2 05/16/2017 12:10 PM [facility] Comment: GFR Calc Calcium 8.8 8.5 - 10.1 mg/dL 05/16/2017 12:10 PM [facility] Bilirubin Total 0.6 0.2 - 1.3 mg/dL 05/16/2017 12:10 PM [facility] Albumin 4.1 3.4 - 5.0 g/dL 05/16/2017 12:10 PM [facility] Protein Total 7.6 6.8 - 8.8 g/dL 05/16/2017 12:10 PM [facility] Alkaline Phosphatase 62 40 - 150 U/L 05/16/2017 12:10 PM [facility] ALT 33 0 - 50 U/L 05/16/2017 12:10 PM CDT [facility] AST 21 0 - 45 U/L 05/16/2017 12:10 PM CDT [facility] Blood specimen (specimen) 05/16/2017 10:50 AM CDT 05/16/2017 11:45 AM CDT Jillian Raymond MD LAB - BLOOD ORDERABL ES [facility] [address] [place] [id number] [phone] * MA Diagnostic Digital Right (10/27/2015 10:50 AM DISTRESSER) Anatomical Region Laterality Modality Breast Right Mammography Impressions 10/27/2015 10:55 AM DISTRESSER IMPRESSION: BI-RADS CATEGORY: 2 - Benign Finding(s) RECOMMENDED FOLLOW-UP: Annual Mammography CRISTINA JEFF MD Narrative 10/27/2015 10:55 AM DISTRESSER DIAGNOSTIC MAMMOGRAM RIGHT DIGITAL w/CAD ??10/27/15 HISTORY: [...] Copath Report Patient Name: FRITZ DARLING MR#: [id number] Specimen #: [id number] Collected: 07/18/2011 Received: 07/19/2011 Reported: 07/21/2011 07:51 [...] commonly, endometrial abnormalities. Electronically signed out by: Huntre Lam M.D. Processed and screened at [facility], [facility] CLINICAL HISTORY: Previous normal pap: 06/12/2007, Papanicolaou Test Limitations: ??Cervical cytology is a screening test with limited sensitivity; regular screening is critical for cancer prevention; Pap tests are primarily effective for the diagnosis/preventi on of squamous cell carcinoma, not adenocarcinomas or other cancers. TESTING LAB LOCATION: [address] ??[address] COLLECTION SITE: Client: ??[facility] Location: [facility] Cytologic material (specimen) 07/18/2011 2:32 PM CDT 07/19/2011 1:27 PM CDT April Fuentes MD LAB - OPTIME CLIN ICAL SPECIMEN COPATH * Lipid panel reflex to direct LDL (07/18/2011 2:32 PM CDT) Cholesterol 176 0 - 200 mg/dL [facility] Comment: LDL Cholesterol is the primary guide to therapy. The NCEP recommends further evaluation of: patients with cholesterol greater than 200 mg/dL if additional risk factors are present, cholesterol greater than 240 mg/dL, triglycerides greater than 150 mg/dL, or HDL less than 40 mg/dL. Triglycerides 89 0 - 150 mg/dL [facility] HDL Cholesterol 60 50 - 110 mg/dL [facility] LDL Cholesterol Calculated 98 0 - 129 mg/dL [facility] Comment: LDL Cholesterol is the primary guide to therapy: LDL-cholesterol goal in high risk patients is <100 mg/dL and in very high risk patients is <70 mg/dL. VLDL-Cholesterol 18 0 - 30 mg/dL [facility] Cholesterol/HDL Ratio 2.9 0.0 - 5.0 [facility] Blood specimen (specimen) 07/18/2011 2:32 PM CDT 07/18/2011 2:33 PM CDT April Fuentes MD LAB - BLOOD ORDER SHENA Performing Organization Address City/[facility]/ZIP Co de Phone Number [facility] from Last 3 Months or Most Recently Relevant to Health Maintenance Care Teams Home Demonstration Agent Relationship Specialty Start Date End Date Amparo Victoria MD [address] [address] PCP - General Internal Medicine 03/30/15
--- OUTSIDE RECORDS SUMMARY | 2024-04-29 11:54 | XMS_ITS | Clinical Summary ---
Author Organization [facility] [facility] Address [place], [place] [address] Care Team Providers Care Hookman Name Role Phone Amparo Victoria MD Primary Care Provider [phone] Allergies No known active allergies Medications Medication Sig Dispensed Refills Start Date End Date Status ACETAMINOPHEN 325 MG TAB Take 1-2 325mg tablets by mouth every 4 hours for pain as needed. 0 0 05/10/2006 Active IBUPROFEN 200 MG CAP Take 1-3 200mg tablets by mouth every 6 hours for pain as needed 0 0 05/10/2006 Active [id number]-UMB-[id number]-FA TAB Take 1 tablet by mouth each [...] Outcome GA Total Labor Labor/2nd/3rd Weight Sex Type Anes PTL Shannon A1 A5 Name Clin SAB Term Last Filed Vital Signs Vital [...] (1 of 2) 2015 COVID-19 vaccine series (2022-24 season) 2023 Influenza for age 50-64 06/01/2024 Pneumococcal series for age 6-64 Aged Out No longer eligible b ased on patient's age to complete this topic Procedures Procedure Name Priority Date/Time Associated Diagnosis Comments XR MAMMO UNI DIAG FFDM RIGHT (IA) Routine 08/18/2013 1:34 PM MICRO LAB ANALYST Follow up GYNECOLOGICAL PANEL Timed 08/19/2009 8 :35 AM MICRO LAB ANALYST from Last 3 Months or Most Recently Relevant to Health Maintenance Results * XR MAMMO UNI DIAG FFDM RIGHT (08/18/2013 1:34 PM MICRO LAB ANALYST) Anatomical Region Laterality Modality BREASTS, Breast Right Right Mammograph y 08/18/2013 1:46 PM MICRO LAB ANALYST Narrative 08/18/2013 2:03 PM MICRO LAB ANALYST [facility] XR MAMMO UNI [...] Procedure Note Elmo Pearce MD - 08/18/2013 [facility] BRE[facility] CENTER XR MAMMO UNI DIAG [...] MAMMO * GYNECOLOGICAL PANEL (08/19/2009 8:35 AM MICRO LAB ANALYST) CYTOLOGY CYTOPATHOLOGY REPORT [facility] Status: Final Status ?[id number] CLINICAL INFORMATION Last Date of LMP ? :08/03/09 Last Pap Date ?:/07 Last Pap Result ?:WNL [place]/Bx done today ? :No HPV Request ?:HPV [...] COLLECTED:08/19/09 ? ACCESSIONED: ??08/23/09 ?? SIGNED: ??08/30/09 [facility] PAP BETHES[place] CODE NIL [facility] 08/19/2009 8:35 AM MICRO LAB ANALYST 08/23/2009 8:35 AM MICRO LAB ANALYST Louise Emanuel PA-C PATHOLOGY/CYTOLOGY [facility] [place] ZIP [address] [address] from Last 3 Months or Most Recently Relevant to Health Maintenance Advance Directives * Full Code (Latest Code Status on File) Date Activated Date Inactivated Comments 05/08/2006 6:17 PM 05/10/2006 4:18 PM * Full Code Date Activated Date Inactivated Comments 05/08/2006 7:48 AM 05/08/2006 6:17 PM Care Teams Hookman Relationship Specialty Start Date End Date Amparo Victoria MD PCP - General Internal Medicine 02/20/13
== END 2024-04-28 10:00 | disposition home or self-care (01) ==
LOC: NFLDREF 04-29 11:52
PROVIDERS: PCP Internal Medicine; Referring Provider Internal Medicine; Visit Provider Physician Assistant Medical
DX: E03.2 Hypothyroidism due to medicaments and other exogenous substances (principal); R20.0 Anesthesia of skin; Z79.899 Other long term (current) drug therapy
CPT/HCPCS: 82306; 82607; 84443

== ENCOUNTER 2025-01-15 07:51 | Outpatient (CLI) | payer OTHER, SELFPAY | END 2025-01-15 07:52 | disposition home or self-care (01) | LOC: NFLDREF 01-17 13:57 | PROVIDERS: PCP Internal Medicine; Referring Provider Internal Medicine; Visit Provider Internal Medicine | DX: E03.2 Hypothyroidism due to medicaments and other exogenous substances (principal) | CPT/HCPCS: 84439; 84443 ==

== ENCOUNTER 2025-03-19 13:53 | Outpatient (CLI) | payer OTHER, SELFPAY ==
--- OUTSIDE RECORDS SUMMARY | 2025-02-02 03:15 | XMS_ITS | Continuity of Care Document ---
Author Organization [facility] Address [address] [address] [place] [address] Phone Care Team Providers Care Assistant Hairstylist Name Role Phone Bertrand Gee MD, Colt Byrnes e Allergies, Adverse Reactions, Alerts Substance Reaction Status Criticality No Known Allergies Active No Inform ation Medications Medication Instructions Dosage Effective Dates (start - stop) Status Comments Estrogen Unknown Oral - Active Synthroid 175 mcg tablet take 1 tablet by oral route every day 175 MCG - Active Procedures Procedure Date Anorectal Manometry Rectal Sensation Test Offic/outpt E&m Estab Mod-hi 2 24 Colonoscopy Flex; W/remov Les- 24 Level Iv-surg [...] Diagnoses Date Provider Providers Copied on Encounter [facility], [address] [address], [place], [id number], [place] tel:[phone] [facility] No Information 5 Bertrand Gregory. [address] [facility], [address], [place], [id number] , [place]. tel: [phone] [facility], [address] [address], [place], [id number], [place] tel:[phone] [facility] No Information 5 Bertrand Gregory. [address] [facility], [address], [place], [id number] , [place]. tel: [phone] [facility], [address] [address], [place], [id number], [place] tel:[phone] [facility] Constipation, unspecified 4 Clarence Tenorio. [address] [facility], [address], [place], [id number] , [place]. tel: [phone] Referring Provider: Referral Self, USE FOR SELF REFERRALS. Offic/outpt E&m Estab Mod-hi 2 [facility], [address] [address], [place], [id number], [place] tel:[phone] [facility] Comment (chief complaint) Unspecified constipationEsoph ageal dysphagia 4 Pedro Braxton. [address] [facility], [facility] [address], [place], [id number] , [place]. tel:[phone] Referring Provider: Referral Self, USE FOR SELF REFERRALS. [facility], [address] [address], [place], [id number], [place] tel:[phone] [facility] GI Symptoms or Concerns (chief complaint) Colorectal polyp detected on colonoscopySerrat ed polyposis syndromeEncounter for screening for malignant neoplasm of colonPersonal history of colonic polypsBenign neoplasm of colon, unspecified 4 Pedro Braxton. [address] [facility], [address], [place], [place], [id number] , [place]. tel: [phone] Referring Provider: Referral Self, USE FOR SELF REFERRALS. [facility], [address] [address], [place], [id number], [place] tel:[phone] [facility] No Information 3 Bertrand Gregory. [address] [facility], [address], [place], [place], [id number] , [place]. tel: [phone] [facility], [address] [address], [place], [id number], [place] tel:[phone] [facility] GI Symptoms or Concerns (chief complaint) Colorectal polypsHemorrhoids , externalEncounter for screening for malignant neoplasm of colonPersonal history of colonic polypsBenign neoplasm of ascending colonBenign neoplasm of transverse colonBenign neoplasm of transverse colonBenign neoplasm of ascending colon 3 Pedro Braxton. [address] [facility], [address], [place], [place], [id number] , [place]. tel: [phone] Referring Provider: Referral Self, USE FOR SELF REFERRALS. [facility], [address] [address], [place], [id number], [place] tel:[phone] [facility] No Information 2 Bertrand Gregory. [address] [facility], [address], [place], [place], [id number] , [place]. tel: [phone] [facility], [address] [address], [place], [id number], [place] tel:[phone] [facility] No Information 2 Bertrand Gregory. [address] [facility], [address], [place], [place], [id number] , [place]. tel: [phone] [facility], [address] [address], [place], [id number], [place] tel:[phone] [facility] Colorectal polyp detected on colonoscopyHistor y of adenomatous polyp of colonEncounter for screening for malignant neoplasm of colonOther specified congenital malformations of intestineEncounte r for screening for malignant neoplasm of colonOther specified congenital malformations of intestinePolyp of colonPersonal history of colonic polyps 9 Pedro Braxton. [address] [facility], [facility] [address], [facility] [place], [id number] , [place]. [phone] Referring Provider: Referral Self, USE FOR SELF REFERRALS. [facility], [address] [address], [place], [id number], [place] tel:[phone] [facility] History of adenomatous polyp of colonOther specified diseases of intestinePersonal history of colonic polyps 9 Pedro Braxton. [address] [facility], [facility] [address], [facility] [place], [id number] , [place]. [phone] Referring Provider: Amparo Victoria MD E, [address] [place] [address], [address]. tel:[phone] [facility], [address] [address], [place], [id number], [place] tel:[phone] [facility] No Information 1 Kodak Case. [address] [facility], [facility] [address], [facility] [place], [id number] , [place]. [phone] Referring Provider: Manpreet Candelario MD, [facility] [address], [place], [address] . tel:[phone] Family History Family Member Type Diagnosis Age [...] basal cell Immunizations Vaccine Date Status Comments Influenza administered Note: [facility] bi-directional interface ; Source: Other Registry Afluria Qd administered Note: [facility] bi-directional interface ; Source: Other Registry Influenza, recombinant, quadrivalent, injectable, preservative free administered Note: [facility] bi-direct ional interface ; Source: Other Registry Seasonal, quadrivalent, recombinant, injectable influenza vaccine, preservative free administered Note: [facility] bi-direct ional interface ; Source: Other Registry Influenza, recombinant, quadrivalent, injectable, preservative free administered Note: [facility] bi-direct ional [...] rectional interface ; Source: Other Registry Influenza, split virus, trivalent, injectable, contains preservative administered Note: [facility] bi-direct ional interface ; Source: Other Registry Influenza, seasonal, injectable administe red Note: [facility] bi- directional interface ; Source: Other Registry Novel [id number], injectable administered Note: [facility] bi-direct ional interface ; Source: Other Registry Payers Payer name Insurance type Covered constitution party ID Authoriza tion(s) No Information Social History Type Description Quantity Date Captured Comments Sex Female Smoking Status No Information Chief Complaint And Reason For Visit No Information Reason For Referral Reason For Referral No Information Plan Of Treatment Date Type Action Status Referral Ordered: Biofeedback Appointment date/timeframe: First Available ordered Referral Ordered: Anorectal manometry Appointment date/timeframe: 04/17/2024 ordered Referral Ordered: EGD Appointment date/timeframe: 02/04/2025 ordered Appointment Sanam Darling BOOKED History Of Present Illness Encounter Date Complaint History Of Prese nt Illness Comment This is a 58-yea r-old female with a history of serrated polyposis syndrome, who comes in to the clinic with symptoms of constipation. She thinks she has had issues with her bowels, constipation since she was in her 20s. Then, she tended to have looser stools. She was found to have hyperthyroidism, she had her thyroid ablated, and she is on thyroid supplementation and that is being followed. Over many years, she has had problems with constipation. She can go 3 days without a bowel movement and then have 5 softer looser stools. She will have [place]ack type 1 stools and then with more frequent looser stools, they will be [place] type 4. She often notes stool in the rectum that she cannot evacuate. She also frequently notes narrowed stools. Intermittently, she will get left lower quadrant pain. Sometimes, that can go down to her left leg. The pain in the left lower quadrant gets better after bowel movements. She also feels better if she lies on her right side or if she does not eat GI Symptoms or Concerns GI Symptoms or Concerns Functional Status Date Functional Assessmen t No Information Instructions Date Instruction Additional Infor hectorion Colon Cancer Prevention Related to Colorectal polyp [...]
--- NOTE | 2025-03-19 14:00 | CRLHL7_ITS ---
For Patients: As a result of the Century Cures Act, medical imaging exams and procedure reports are released immediately into your electronic medical record. You may view this report before your referring provider. If you have questions, please contact your health care provider. INDICATION: BILATERAL SCREENING MAMMOGRAM, ASYMPTOMATIC 59 Y/O FEMALE COMPARISON: 02/14/2024, 02/09/2023, 12/01/2021 TECHNIQUE: Digital mammogram in CC and MLO projections including computer-aided detection (CAD) and tomosynthesis. BREAST COMPOSITION: The breasts are extremely dense, which lowers the sensitivity of mammography. FINDINGS: No suspicious findings. ASSESSMENT: BI-RADS 2 Benign RECOMMENDATION: Annual screening mammogram. A lay language report of this examination will be provided to the patient. Dictated by: Spencer Murphy MD @ 03/20/2025 11:24:07 (Electronically Signed)
--- OUTSIDE RECORDS SUMMARY | 2025-03-20 00:40 | XMS_ITS | Clinical Summary ---
Author Organization [facility] Address [address] [place] [address] Care Team Providers Care International Logistics Manager Name Role Phone Amparo Victoria MD Primary Care Provider [phone] Allergies No known active allergies Medications ACETAMINOPHEN 325 MG TAB Take 1-2 325mg tablets by mouth every 4 hours for pain as needed. 0 0 05/10/2006 Active IBUPROFEN 200 MG CAP Take 1-3 200mg tablets by mouth every 6 hours for pain as needed 0 0 05/10/2006 Active CIACCECF-MR-KCB -FE-FA TAB Take 1 tablet by mouth each day 0 0 05/10/2006 Active DOCUSATE SODIUM 100 MG CAP Take 100mg by mouth per day. 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 Gender Identity Not on file Sexual Orientation [...] 72 05/10/2006 9:32 AM CDT Temperature 36.7 C (98 F) 05/10/2006 9:32 AM CDT Respiratory Rate 18 [...] age 18+ 1983 Hepatitis C screening for age 18-79 1983 Hepatitis B series for 19+ ( 1 of 3 - 19+ 3-dose series) 1984 Tetanus booster 1985 Colonoscopy through age 75 2010 Lipids for age 45-75 2010 Pap test for age 21-65 08/19/2012 08/19/2009 Mammogram for age 45-75 08/18/2014 08/18/2013, 02/21 Pneumococcal series for age 50+ (1 of 1 - PCV) 2015 Zoster (shingles) series for age 50+ (1 of 2) 2015 COVID-19 vaccine series (1 - season) 2024 Influenza Vaccine (Season Ended) 2025 Procedures Procedure Name Priority Date/Time Associated Diagnosis Comments XR MAMMO UNI DIAG FFDM RIGHT (IA) Routine 08/18/2013 1:34 PM HEAT REGULATOR Follow up GYNECOLOGICAL PANEL Timed 08/19/2009 8 :35 AM HEAT REGULATOR from Last 3 Months or Most Recently Relevant to Health Maintenance Results * XR MAMMO UNI DIAG FFDM RIGHT (08/18/2013 1:34 PM HEAT REGULATOR) Anatomical Region Laterality Modality BREASTS, Breast Right Right Mammograph y 08/18/2013 1:46 PM HEAT REGULATOR Narrative 08/18/2013 2:03 PM HEAT REGULATOR [facility] XR MAMMO UNI DIAG [...] microcalcifications inferior right breast. Six-month followup recommended. ACR BI-RADS: Category 3: Probably Benign: Short Interval Followup Suggested Procedure Note Elmo Pearce MD - 08/18/2013 [facility] XR MAMMO UNI DIAG FFDM RIGHT [...] Category 3: Probably Benign: Short Interval FollowupSuggested us Amparo Victoria MD MAMMO Final Resu lt * GYNECOLOGICAL PANEL (08/19/2009 8:35 AM HEAT REGULATOR) CYTOLOGY CYTOPATHOLOGY REPORT [facility] Status: Final Status [id number] CLINICAL INFORMATION Last Date of LMP :08/03/09 Last Pap Date : Last Pap Result :WNL Exline/Bx done today :No HPV Request :HPV if ASCUS SPECIMEN SOURCE :Cervical/vaginal ThinPrep Vial, screening SPECIMEN ADEQUACY :Satisfactory for evaluation Endocervical component present. INTERPRETATION/RES ULT Negative for intraepithelial lesion or malignancy (NIL) Cytology 1st Screener :jaimee Signed by :jaimee This specimen was screened by the FDA approved ThinPrep Imaging System and manually reviewed. NOTE: The Pap test is a screening technique, not a diagnostic procedure. It is used primarily to screen for squamous cancers and precursor lesions. Published studies have shown that it is subject to both false negative and false positive results. The pap test should not be used as the sole means to diagnose or exclude pre-malignant and malignant lesions. COLLECTED:08/19/09 ACCESSIONED: 08/23/09 SIGNED: 08/30/09 [facility] PAP [place] CODE NIL [facility] 08/19/2009 8:35 AM HEAT REGULATOR 08/23/2009 8:35 AM HEAT REGULATOR december Adelfo MARKS PATHOLOGY/CYTOLOGY Final R esult [facility] INTERNAL ZIP [address] [place] [phone] from Last 3 Months or Most Recently Relevant to Health Maintenance Insurance [place]N [id number] Advance Directives * Full Code (Latest Code Status on File) Date Activated Date Inactivated Comments 05/08/2006 6:17 PM 05/10/2006 4:18 PM * Full Code Date Activated Date Inactivated Comments 05/08/2006 7:48 AM 05/08/2006 6:17 PM Care Teams International Logistics Manager Relationship Specialty Start Date End Date Amparo Victoria MD PCP - General Internal Medicine 02/20/13
--- OUTSIDE RECORDS SUMMARY | 2025-03-20 00:41 | XMS_ITS | Clinical Summary ---
Author Organization [facility] Address [address], [place] [address] Care Team Providers Care Information Officer Name Role Phone Unavailable Primary Care Provider Unavailabl e Source Comments You are receiving this document as you are listed as the primary care provider,follow-up provider, or the patient has been referred to you for consultation.This is in compliance with the Medicare andOhio[facility] Hospitalca[facility] EHR Incentive Program,which states Providers who transition their patient to another setting of careor provider of care or refers their patient to another provider of care shouldprovide summary care record for each transition of care or referral. [facility] Allergies No known active allergies Medications estradiol (CLIMARA) 0.05 MG/24HR weekly patch Apply 1 Patch to skin once every week. 10/28/2023 Active levothyroxine (SYNTHROID) 150 MCG tablet Take 1 Tablet (150 mcg) by mouth daily. 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 Gender Identity Not on file Sexual Orientation Not on file Plan of Treatment Health Maintenance Due Date Last Done Comments Cervical Cancer Screening Due 1965 Colon Cancer Screening Plan Due 1965 Hep C Screening (Preventive Services) 1965 Mammogram 1965 HIV Screening (Preventive Services) 1981 Adult Preventive Visit 1983 HepB Vaccine (1) 1984 Cholesterol 2010 Pneumococcal Vaccine 50+ Yrs (1 of 1 - PCV) 2015 DTaP/Tdap/Td Vaccine (1 - Tdap) 06/13/2017 06/12/2017 COVID-19 Vaccine (3 - season) 2024 01/27/2021, 12/30/2020 Influenza Vaccine (Season Ended) 2025 09/16/2023, 07/26/2022, 07/05/2021, Additional history exists Zoster/Shingles Vaccine Completed 11/03/2020, 03/01 HepA Vaccine Aged Out No longer eligi ble based on patient's age to complete this topic Hib Vaccine Aged Out No longer eligi ble based on patient's age to complete this topic IPV (Polio) Vaccine Aged Out No longe r eligible based on patient's age to complete this topic MCV4 Vaccine Aged Out No longer eligi ble based on patient's age to complete this topic Meningococcal B Vaccine Aged Out No l onger eligible based on patient's age to complete this topic Insurance SELF INSURED
--- OUTSIDE RECORDS SUMMARY | 2025-03-20 00:41 | XMS_ITS | Clinical Summary ---
Author Organization [facility] Address [address] [place] [id number] Care Team Providers Care Microbiology Lab Technician Name Role Phone Amparo Victoria MD Primary Care Provider Allergies No known active allergies Medications omeprazole (PRILOSEC) 40 MG capsuleIndications: Esophageal ulcer Take 1 capsule by mouth daily. 30 capsule 11 1 Active SYNTHROID 175 MCG tabletIndications:U nspecified hypothyroidism Take 1 tablet by mouth daily. Last refill the pt needs labs and an appt with there provider, please inform the pt 90 tablet 0 2 Active estradiol (VIVELLE-DOT) 0.05 MG/24HR BIW patch Place 1 patch onto the skin twice a week Active Active Problems Problem Noted Date Diagnosed Date CARDIOVASCULAR SCREENING; LDL GOAL LESS THAN 160 07/30/2011 Hypothyroidism 06/12/2007 Overview (07/01/2015): Problem list name updated by automated process. Provider to review Anxiety state 06/12/2007 Overview (07/01/2015): Problem list name updated by automated process. Provider to review Acute reaction to stress 06/12/2007 Overview (07/01/2015): Problem list name updated by automated process. Provider to review Immunizations Immunization Administration Dates Next Due Influenza (IIV3) PF [...] School Help Needed Not on file 07/15 Comments No Sex and Gender Information Value Date Recorded Sex Assigned at Not on file Legal Sex Female 3:36 AM [employer] Gender Identity Not on file Sexual Orientation Not on file Last Filed Vital Signs Vital Sign Reading Time Taken Comments Blood Pressure 140/92 04/30/2022 9:43 PM CDT Pulse 92 04/30/2022 9:43 PM CDT Temperature 36.6 C (97.9 F) 04/30/2022 9:43 PM CDT Respiratory Rate 18 04/30/2022 9:43 PM CDT Oxygen Saturation 97% 04/30/2022 9:43 PM CDT Inhaled Oxygen Concentration - - Weight 72.6 kg (160 lb) 04/30/2022 9:43 PM CDT Height 170.2 cm (5' 7) 08/07/2011 9:08 AM [employer] Body Mass Index - - Plan of Treatment Health Maintenance Due Date Last Done Comments ADVANCE CARE PLANNING 1965 ANNUAL REVIEW OF HM ORDERS 1965 CT COLONOGRAPHY 1965 FIT 1965 FLEX SIG 1965 sDNA (Cologuard) 1965 COLONOSCOPY 1975 COLORECTAL CANCER SCREENING 1975 HIV SCREENING 1980 HEPATITIS C SCREENING 1983 HEPATITIS B VACCINE (1 of 3 - 19+ 3-dose series) 1984 DTAP/TDAP/TD VACCINE (1 - Tdap) 1990 PAP 07/18/2012 07/18/2011, 06/12/2007 YEARLY PREVENTIVE VISIT 07/18/2012 07/18/2011, 06/12 PNEUMOCOCCAL VACCINE 50+ YEARS (1 of 1 - PCV) 2015 LIPID 07/18/2016 07/18/2011, 06/15/2007 MAMMO SCREENING 10/27/2017 10/27/2015, 10/24/2010 TSH W/FREE T4 REFLEX 05/16/2018 05/16/2017, 07/18/2011, 07/18/2011, Additional history exists DIABETES SCREENING 05/16/2020 05/16/2017, 1 , 06/15/2007 COVID-19 VACCINE ( season) 2024 01/27/2021, 12/30/2020 PHQ-2 (once per calendar year) 2024 INFLUENZA VACCINE (Season Ended) 2025 07/05/2021, 05/25/2019, 05/20/2018, Additional history exists ZOSTER VACCINE Completed 11/03/2020, 03/01/2020 HPV VACCINE Aged Out No longer eligi ble based on patient's age to complete this topic MENINGITIS VACCINE Aged Out No longer eligible based on patient's age to complete this topic Procedures Procedure Name Priority Date/Time Associated Diagnosis Comments COMPREHENSIVE METABOLIC PANEL STAT 05/16/2017 10:50 AM CDT TSH WITH FREE T4 REFLEX Routine 05/16/2017 10:50 AM CDT Chest pain, unspecified type MA DIAGNOSTIC DIGITAL RIGHT Routine 10/27/2015 10:50 AM [employer] Follow-up exam, 3-6 months since previous exam [...] - 4.00 mU/L 05/16/2017 2:04 PM CDT [facility] 05/16/2017 10:5 0 AM CDT 05/16/2017 11:45 AM CDT us Jillian Raymond MD LAB - BLOOD ORDERABLES Final Res ult [facility] [address], [place] [address] [phone] * (ABNORMAL) Comprehensive metabolic panel (05/16/2017 10:50 [...] 0 - 50 U/L 05/16/2017 12:10 PM [facility] AST 21 0 - 45 U/L 05/16/2017 12:10 PM CDT [facility] Blood specimen (specimen) 05/16/2017 10:50 AM CDT 05/16/2017 11:45 AM CDT us Jillian Raymond MD LAB - BLOOD ORDERABLES Final Res ult [facility] [place] [id number] [phone] * MA Diagnostic Digital Right (10/27/2015 10:50 AM [employer]PH[employer]YL[employer] GRINDER) Anatomical Region Laterality Modality Breast Right Mammography Impressions 10/27/2015 10:55 AM [employer]ER IMPRESSION: BI-RADS CATEGORY: 2 - Benign Finding(s) RECOMMENDED FOLLOW-UP: Annual Mammography CRISTINA JEFF MD Narrative 10/27/2015 10:55 AM [employer] GR[employer]ER DIAGNOSTIC MAMMOGRAM RIGHT DIGITAL w/CAD 10/27/15 HISTORY: [...] RECOMMENDED FOLLOW-UP: Annual Mammography CRISTINA JEFF MD us Amparo Victoria MD IMG MAMMOGRAPHY ORDERABLES F inal Result * PAP IMAGED THIN LAYER SCREEN (07/18/2011 2:32 PM CDT) PAP OTHER-NIL EM>40 [facility] Copath Report Patient Name: FRITZ DARLING MR#: [id number] Specimen #: [id number] Collected: 07/18/2011 Received: 07/19/2011 Reported: 07/21/2011 07:51 Ordering Phy(s): APRIL FUENTES SPECIMEN/STAIN PROCESS: Pap imaged thin layer prep screening (Surepath, FocalPoint with guided screening) Pap-Cyto x 1, Reflex HPV x 1 SOURCE: Cervical, endocervical Pap imaged thin layer prep screening (Surepath, FocalPoint with guided screening) SPECIMEN ADEQUACY: Satisfactory for evaluation. -Transformation zone component present. CYTOLOGIC INTERPRETATION: Other: Negative for Intraepithelial Lesion or Malignancy, See interpretation/Res ult. -Endometrial cells present. -Endometrial cells after age 40, particularly out of phase or after menopause, may be associated with benign endometrium, hormonal alterations, and less commonly, endometrial abnormalities. Electronically signed out by: Hunter Lam M.D. Processed and screened at [facility], [facility] CLINICAL HISTORY: Previous normal pap: 06/12/2007, Papanicolaou Test Limitations: Cervical cytology is a screening test with limited sensitivity; regular screening is critical for cancer prevention; Pap tests are primarily effective for the diagnosis/preventi on of squamous cell carcinoma, not adenocarcinomas or other cancers. TESTING LAB LOCATION: [address] [address] COLLECTION SITE: Client: [facility] Location: [facility] ([facility] [place] Cytologic material (specimen) 07/18/2011 2:32 PM CDT 07/19/2011 1:27 PM CDT us April Fuentes MD LAB - OPTIME CLINICAL SPE CIMEN Final Result Performing Organization Address [facility]/ZIP Co de Phone Number COP[facility] * Lipid panel reflex to direct LDL (07/18/2011 2:32 PM CDT) Cholesterol 176 0 - 200 mg/dL [facility] Comment: LDL Cholesterol is the primary guide to therapy. The NCEP recommends further evaluation of: patients with cholesterol greater than 200 mg/dL if additional risk factors are present, cholesterol greater than 240 mg/dL, triglycerides greater than 150 mg/dL, or HDL less than 40 mg/dL. Triglycerides 89 0 - 150 mg/dL [facility] HDL Cholesterol 60 50 - 110 mg/dL [facility] LDL Cholesterol Calculated 98 0 - 129 mg/dL [facility] Comment: LDL Cholesterol is the primary guide to therapy: LDL-cholesterol goal in high risk patients is <100 mg/dL and in very high risk patients is <70 mg/dL. VLDL-Cholesterol 18 0 - 30 mg/dL [facility] Cholesterol/HDL Ratio 2.9 0.0 - 5.0 [facility] Blood specimen (specimen) 07/18/2011 2:32 PM CDT 07/18/2011 2:33 PM CDT April Fuentes MD LAB - BLOOD ORDERABLES Fi nal Result Performing Organization Address [facility] Co de Phone Number [facility] [address] [place] [address] from Last 3 Months or Most Recently Relevant to Health Maintenance Insurance [employer] Care Teams Microbiology Lab Technician Relationship Specialty Start Date End Date Amparo Victoria MD [address] [address] PCP - General Internal Medicine 03/30/15
== END 2025-03-19 13:54 | disposition home or self-care (01) ==
LOC: MAMMO 13:54
PROVIDERS: PCP Internal Medicine; Visit Provider Internal Medicine
DX: Z12.31 Encounter for screening mammogram for malignant neoplasm of breast (principal); R92.343 Mammographic extreme density, bilateral breasts
CPT/HCPCS: 77063; 77067

== ENCOUNTER 2025-06-12 09:55 | Outpatient (CLI) | payer OTHER, SELFPAY | END 2025-06-12 09:56 | disposition home or self-care (01) | LOC: NFLDREF 06-16 11:28 | PROVIDERS: PCP Internal Medicine; Referring Provider Internal Medicine; Visit Provider Family Medicine | DX: R35.0 Frequency of micturition (principal); R10.2 Pelvic and perineal pain; N32.81 Overactive bladder | CPT/HCPCS: 80053 ==

== ENCOUNTER 2025-06-25 14:36 | Outpatient (CLI) | payer OTHER, SELFPAY ==
--- NOTE | 2025-06-25 15:00 | CRLHL7_ITS ---
For Patients: As a result of the Century Cures Act, medical imaging exams and procedure reports are released immediately into your electronic medical record. You may view this report before your referring provider. If you have questions, please contact your health care provider. INDICATION: MASS ON PALPATION, LLQ ABD PAIN. TECHNIQUE: CT abdomen and pelvis acquired with 74 mL Isovue 370 IV contrast. COMPARISON: CT abdomen/pelvis dated 09/11/2016. FINDINGS: Lower chest: No focal consolidation. Liver: Slight interval increase in size of a 1.1 cm cyst in segment 2 of the liver. Additional scattered too small to characterize hypodense hepatic lesions, likely benign in the absence of a known malignancy. Gallbladder and bile ducts: Gallbladder is decompressed, suboptimally evaluated. No calcified gallstones. Pancreas: Unremarkable. Spleen: Unremarkable. Adrenal glands: Unremarkable. Kidneys: Kidneys enhance symmetrically, without hydronephrosis. Retroperitoneum: No lymphadenopathy. Bowel and mesentery: Limited evaluation of the bowel and mesentery secondary to significant redundancy of the sigmoid colon, large fecal burden within the ascending colon, redundancy of the transverse colon, as well as a paucity of intra-abdominal fat. No evidence of acute appendicitis. Fluid-filled portion of the descending colon, compatible with diarrheal illness/colitis. No evidence of small-bowel obstruction. No definite pneumoperitoneum identified. Bladder: Unremarkable for degree of distention. Reproductive organs: Uterus appears to be surgically absent. Pelvic lymph nodes: No lymphadenopathy. Vessels: Unremarkable. Abdominal wall: Mild anasarca. Bones: Multilevel degenerative changes of the spine. Bones are osteopenic. IMPRESSION: 1. Evaluation of the bowel and mesentery is significantly limited due to multiple factors as described above. Fluid-filled portion of the descending colon is compatible with diarrheal illness/colitis. No evidence of small-bowel obstruction. 2. Mild anasarca is present. No subcutaneous masses identified in the left lower quadrant. 3. Additional incidental findings as above. Please note that all CT scans at this facility use dose modulation, iterative reconstruction, and/or weight-based dosing when appropriate to reduce radiation dose to as low as reasonably achievable. Dictated by Lois Holland MD @ 06/26/2025 2:23:07 PM (Electronically Signed)
== END 2025-06-25 14:37 | disposition home or self-care (01) ==
LOC: CT 14:37
PROVIDERS: PCP Internal Medicine; Visit Provider Family Medicine
DX: R19.00 Intra-abdominal and pelvic swelling, mass and lump, unspecified site (principal); R10.32 Left lower quadrant pain
CPT/HCPCS: 74177; Q9967